=== PATIENT | female | born 1955 | race Caucasian/White ===

== ENCOUNTER 2022-04-04 13:53 | Outpatient (CLI) | payer OTHER, SELFPAY ==
[2022-04-04 19:53] LABS: Lab Add On Test 25.2
== END 2022-04-04 13:54 | disposition home or self-care (01) ==
PROVIDERS: PCP Family Medicine; Visit Provider Family Medicine
DX: Z00.00 Encounter for general adult medical examination without abnormal findings (principal); M85.80 Other specified disorders of bone density and structure, unspecified site; I10 Essential (primary) hypertension; E78.5 Hyperlipidemia, unspecified; E66.9 Obesity, unspecified; Z12.11 Encounter for screening for malignant neoplasm of colon

== ENCOUNTER 2022-05-25 09:45 | Outpatient (CLI) | payer OTHER, SELFPAY ==
--- NOTE | 2022-05-25 10:15 | CRLHL7_ITS ---
For Patients: As a result of the Century Cures Act, medical imaging exams and procedure reports are released immediately into your electronic medical record. You may view this report before your referring provider. If you have questions, please contact your health care provider. BILATERAL SCREENING MAMMOGRAM WITH COMPUTER-AIDED DETECTION AND TOMOSYNTHESIS TECHNIQUE: CC and MLO views were obtained. These mammographic images have been obtained using full-field digital technique. These mammographic images were interpreted with the benefit of computer-aided detection. Breast Tomosynthesis was used in this interpretation. COMPARISON FILM: 09/29/20, 07/28/19, 10/24/17. FINDINGS: There are scattered areas of fibroglandular density IMPRESSION: There is no radiographic evidence for malignancy. ASSESSMENT: BI-RADS Category 1: Negative RECOMMENDATION: Routine screening mammogram in 1 year. A lay language report of this examination will be provided to the patient. Gabe Salazar M.D. Diagnostic Radiologist [email or web address] JACQUELINE/Dictated by: Gabe Salazar MD @ 05/25/2022 11:57:00 AM (Electronically Signed)
== END 2022-05-25 09:46 | disposition home or self-care (01) ==
LOC: MAMMO 09:46
PROVIDERS: PCP Family Medicine; Visit Provider Family Medicine
DX: Z12.31 Encounter for screening mammogram for malignant neoplasm of breast (principal)
CPT/HCPCS: 77063; 77067

== ENCOUNTER 2022-06-22 09:00 | Outpatient (RCR) | payer OTHER, SELFPAY ==
--- NOTE | 2022-04-26 11:40 | PT.OPDNX ---
PT [facility] Daily Note PT [facility] Outpatient Daily Note Start: 04/12/22 13:23 Freq: Status: Active Protocol: Document 04/26/22 09:33 MBB (Rec: 04/26/22 10:31 MBB [id number]) E-Signed By Sita Gold DPT PT OP Daily Progress Note Visit Information Note Type Recert/Progress Note Insurance Information Medical Diagnosis right tibial plateau fracture Treating Diagnosis weakness; impaired gait; decreased knee ROM; pain Subjective Subjective Ankle joint and decreased sensation issues continue to be a big limiting factor. Saw Dr. Morillo and everything is healing correctly. Will return in 2 months. Home Exercise Home Exercise Comments Access Code: [email or web address] Focus exercises from 04/13: heel prop knee ext; seated knee flex overpressure; SLS; Step down/reverse step up; Banded TKE; Mini squat; Self ankle dorsiflexion mobilization Objective Other/Pertinent Objective Right knee 0-130? Patient Instructed in Risks/Benefits Yes Therapeutic Exercise Therapeutic Exercise Minutes (minutes) 30 Therapeutic Exercise: To Restore to restore functional strength Functional Status and ROM -NuStep seat 6, L6, 5 mins; fatigued -Heel raise STMR 1x20 (ankle pain at 90? position) -Sled push 10#, hallway x2 -6 step up, 1UE support, hold SLS while locking knee into TKE with quad and glute activation, 1x15 -LAQ 5# 1x30 -Retro step down 4 1x15, training for roll off foot and avoiding knee valgus -Stagger stance sit to stand, black bench, 1x10, cues to keep heel down -Static lunge at grab bar 1x10 , each way Manual Therapy Techniques Manual Therapy Minutes (minutes) 10 Manual Therapy Techniques to improve ankle and knee joint mobility and ROM -Supine right ankle AP mob grade 3-4 -Heel prop knee ext overpressure -Hooklying knee flexion to end range Treatment Minutes Timed Code Treatment Minutes 40 Total Treatment Time 40 Billing Units Manual Therapy Units 1 Therapeutic Exercise Units 2 Assessment/Impression Assessment/Impression Pt tolerated exercise focused session pushing her strength and endurance. LE mechanics are improving with dynamic functional movements. ROM has been achieved. Continuing to assist with ankle joint impairments. At the point where pt is needed to continue building strength and endurance. Plan of Care Physical Therapy Goals Short term By 03/15/22 patient will... 1) Move knee actively through full ROM 0-130? (MET) 2) Get around house independently with standard walker maintaining NWB. (MET) 3) Demonstrate strong quad set and SLR without lag. (MET) watermaster By 05/10/22 patient will... 1) Walk without AD with normal gait mechanics and no pain. ( nearly met) 2) Ascend/descend steps with step-through mechanics, single railing and no pain. ( progress) 3) Balance on right leg for 10 seconds. (progress) 4) Demonstrate single right leg sit to stand from chair to demonstrate appropriate strength. ( progress) Daily Plan of Care Continue per POC Recertification Information Clinical Certification # #[id number] Patient's H.I.C.N.# # Initial Certification Date 01/27/22 Most Recent Visit 04/26/22 Recertification Start Date 04/22/22 Recertification Due Date 06/19/22 Reasons to Continue Skilled Therapy Patient continues to make progress but is only about 50% of her prior level of function. She continues to have knee and ankle joint pain that limits her activity. Strength and endurance limitations. Fracture is still healing. Working on lower extremity mechanics with functional movements. Rehabilitation Potential excellent Continued Plan of Care and Interventions 1 x per week for 4 weeks then prn for 4 weeks I Certify That I Have Established All Therapy Services/Plan Physician Signature Shows Agreement Dates & Medical Necessity Physician Comment/Change Comment or Changes Physician Signature & Date Please Sign/Date Here Physician NPI Number #
== END 2022-06-22 12:42 | disposition home or self-care (01) ==
PROVIDERS: PCP Family Medicine; Visit Provider Orthopaedic Surgery Sports Medicine
DX: R26.9 Unspecified abnormalities of gait and mobility (principal); Z51.89 Encounter for other specified aftercare
CPT/HCPCS: 97110; 97116; 97140

== ENCOUNTER 2023-04-05 07:40 | Outpatient (CLI) | payer OTHER, SELFPAY | END 2023-04-05 07:41 | disposition home or self-care (01) | PROVIDERS: PCP Family Medicine; Referring Provider Family Medicine; Visit Provider Family Medicine | DX: E78.5 Hyperlipidemia, unspecified (principal); E55.9 Vitamin D deficiency, unspecified; M85.80 Other specified disorders of bone density and structure, unspecified site | CPT/HCPCS: 80053; 80061; 82306 ==

== ENCOUNTER 2023-04-19 14:47 | Outpatient (CLI) | payer OTHER, SELFPAY ==
--- NOTE | 2023-04-19 15:00 | CRLHL7_ITS ---
For Patients: As a result of the Century Cures Act, medical imaging exams and procedure reports are released immediately into your electronic medical record. You may view this report before your referring provider. If you have questions, please contact your health care provider. DXA BONE MINERAL DENSITY STUDY Current height (in): 61.0. Weight (lb): 170.0. Menopause age: 54. Ethnicity: White. 1. Have you had a previous hip or vertebral fracture? No. 2. Have you had any fractures during your adult life which did not result from significant trauma (e.g., auto accident)? No. 3. Did either of your parents have a hip fracture? Yes. 4. Do you smoke? No. 5. Have you ever taken Glucocorticoids? No. 6. Do you have rheumatoid arthritis? No. 7. Do you have secondary osteoporosis? No. 8. Do you drink 3 or more alcoholic drinks per day? No. 9. Are you being treated for osteoporosis? No. 10. Have you ever taken any of the following medications: Actonel, Evista, Fosamax, Miacalcin, Reclast, Boniva, Forteo, HRT (i.e. estrogen/hormone therapy), Protelos, Prolia, Vitamin D, Calcium, other ??? please specify. ANSWER: Yes, Fosamax, vitamin D. 11. Do you have any of the following medical conditions: Anorexia or bulimia, asthma or emphysema, end stage renal disease, hyperparathyroidism, any seizure disorders, cancer, inflammatory bowel diseases, hysterectomy, other ??? please specify. ANSWER: No. 12. What was your maximum height (inches)? 62. 13. Do you perform weight bearing exercise regularly? Yes. 14. Do you regularly consume dairy products? Yes. 15. Do you drink caffeinated beverages? Yes. 16. At what age did your period start? 14. 17. Are you premenopausal? No. 18. How many full term pregnancies have you had? 1. 19. Have you ever missed your period for more than 6 months in a row (not including or menopause)? No. TECHNIQUE: Bone mineral density study was performed using the [employer]. FINDINGS: The results of the study expressed as bone mineral density (BMD) are as follows: Lumbar spine L1 to L4 (L3): BMD: 0.953 g/cm2. T-score: -0.7. Z-score: 1.3. Neck Left: BMD: 0.658 g/cm2. T-score: -1.7. Z-score: 0.0. Right: BMD: 0.603 g/cm2. T-score: -2.2. Z-score: -0.5. Total Left: BMD: 0.897 g/cm2. T-score: -0.4. Z-score: 1.1. Right: BMD: 0.798 g/cm2. T-score: -1.2. Z-score: 0.3. IMPRESSION: Osteopenia. *Comparison exams done prior to 03/2020 were performed on different unit, Source[employer]. COMPARISON: Compared with scan of 07/28/2019, the bone mineral density has decreased by 3.8 percent at the spine and increased by 0.8 percent at the hip. FRAX 10-year Fracture Risk Major Osteoporotic Fracture: 19 percent Hip Fracture: 4.1 percent Reported Risk Factors: [place] () Neck BMD=0.603, BMI=32.1, parental fracture Gabe Salazar M.D. Diagnostic Radiologist [email or web address] ANTONETTE/sylvester / be/Dictated by: Gabe Salazar MD @ 04/19/2023 3:50:00 PM (Electronically Signed)
== END 2023-04-19 14:48 | disposition home or self-care (01) ==
LOC: RAD 14:47
PROVIDERS: PCP Family Medicine; Visit Provider Family Medicine
DX: M85.80 Other specified disorders of bone density and structure, unspecified site (principal)
CPT/HCPCS: 77080

== ENCOUNTER 2023-06-27 09:04 | Outpatient (CLI) | payer OTHER, SELFPAY ==
--- NOTE | 2023-06-27 09:15 | CRLHL7_ITS ---
For Patients: As a result of the Century Cures Act, medical imaging exams and procedure reports are released immediately into your electronic medical record. You may view this report before your referring provider. If you have questions, please contact your health care provider. BILATERAL SCREENING MAMMOGRAM WITH COMPUTER-AIDED DETECTION AND TOMOSYNTHESIS TECHNIQUE: CC and MLO views were obtained. These mammographic images have been obtained using full-field digital technique. These mammographic images were interpreted with the benefit of computer-aided detection. Breast Tomosynthesis was used in this interpretation. COMPARISON FILM: 05/25/22, 09/29/20, 07/28/19. FINDINGS: There are scattered areas of fibroglandular density IMPRESSION: There is no radiographic evidence for malignancy. ASSESSMENT: BI-RADS Category 1: Negative RECOMMENDATION: Routine screening mammogram in 1 year. A lay language report of this examination will be provided to the patient. Gabe Salazar M.D. Diagnostic Radiologist [email or web address] JACQUELINE/Dictated by: Gabe Salazar MD @ 06/27/2023 12:22:00 PM (Electronically Signed)
== END 2023-06-27 09:05 | disposition home or self-care (01) ==
LOC: MAMMO 09:05
PROVIDERS: PCP Family Medicine; Visit Provider Family Medicine
DX: Z12.31 Encounter for screening mammogram for malignant neoplasm of breast (principal)
CPT/HCPCS: 77063; 77067

== ENCOUNTER 2023-11-13 08:29 | Outpatient (CLI) | payer OTHER, SELFPAY ==
--- OUTSIDE RECORDS SUMMARY | 2023-11-13 08:31 | XMS_ITS | Clinical Summary ---
Author Name Unknown Organization [facility] Address [address] [place] [address]. [place] [address] Care Team Providers Care Wine Steward Name Role Phone Unavailable Primary Care Provider Unavailabl e Allergies Active Allergy Reactions Criticality Noted Date Comments Erythromycin Shortness Of Breath,Hives High 10/26/19 11 Nuxjwsmg-Ukjinfsng-Ncetgamrx n Rash Low 03/06/2012 Medications Medication Sig Dispensed Refills Start Date End Date Status Cholecalciferol (VITAMIN D) 2000 UNIT CAPS Take by mouth daily. 0 Active Multiple Vitamin (MULTIVITAMINS PO) Take by mouth daily. 0 Active Misc Natural Products (GLUCOSAMINE CHONDROITIN ADV PO) Take by mouth daily. 0 Active Calcium Carbonate (CALCIUM 600 PO) Take by mouth 2 times daily. 0 Active coenzyme Q-10 (CO Q-10) 200 MG CAPS Take 200 mg by mouth daily. 0 Active aspirin 81 MG tablet Take 1 tablet (81 mg) by mouth daily 30 tablet 1 10/24/2013 Active mometasone (ELOCON) 0.1 % creamIndications:Othe r eczema Apply sparingly to affected area twice daily for 14 days. Do not apply to face. 15 g 1 02/22/2017 Active amLODIPine (NORVASC) 5 MG tabletIndications:HTN , goal below 140/90 TAKE 1 TABLET BY MOUTH EVERY DAY 90 tablet 1 05/21/2018 Active lisinopril (PRINIVIL/ZESTRIL) 40 MG tabletIndications:HTN , goal below 140/90 Take 1 tablet (40 mg) by mouth daily 90 tablet 1 06/04/2018 Active valACYclovir (VALTREX) 1000 mg tabletIndications:Her pes zoster without complication Take 1 tablet (1,000 mg) by mouth 3 times daily 21 tablet 0 06/13/2018 Active triamterene-HCTZ (MAXZIDE-25) 37.5-25 MG tabletIndications:HTN , goal below 140/90 Take 0.5 tablets by mouth daily 90 tablet 0 09/05/2018 Active atorvastatin (LIPITOR) 20 MG tabletIndications:Hyp erlipidemia LDL goal <130 TAKE 1 TABLET (20 MG) BY MOUTH DAILY 90 tablet 1 09/05/2018 Active Active Problems Problem Noted Date Diagnosed Date Family history of stroke 09/05/2018 Chronic pain of right ankle 10/18/2016 Advance Care Planning 03/12/2012 Overview: Advance Care Planning 01/03/2017: Receipt of ACP document: Received: Health Care Directive which was witnessed or notarized on 12/17/2014. Document previously scanned on 10/20/2016. Validation form completed and scanned. Code Status needs to be updated to reflect choices in most recent ACP document. Confirmed/documented designated decision maker(s). Added by Julita Bhagat [facility] Advance Care Planning Liaison Advance Care Planning 03/12/2012: Patient states has Advance Directive and will bring in a copy to clinic. Added by Janelle Stovall HTN, goal below 140/90 03/12/2012 Hyperlipidemia LDL goal <130 03/01/2011 Resolved Problems Problem Noted Date Diagnosed Date Resolved Date Pain in joint, ankle and foot 01/04/2011 06/20/2011 Achilles bursitis or tendinitis 01/04/2011 06/20/2011 Immunizations Name Administration Dates Next Due Influenza (IIV3) PF 08/28/2013, 2,10/26/2010,2004 Influenza Vaccine 18-64 (Flublok) 09/05/2018 Influenza Vaccine >6 months,quad, PF ,10/18/2016,11/05/2015,2014,08/18/2013 TD,PF 7+ (Tenivac) 05/21/2010 TDAP Vaccine (Adacel) 10/18/2016 Zoster recombinant adjuvante d (SHINGRIX) 09/05/2018,04/18/2018 Zoster vaccine, live 11/05/2015 Family History Medical History Relation Comments Cerebrovascular Disease Father Age 80 Hypertension Father Lipids Father Breast Cancer Mother Diagnosed, maste ctomy rgt. breast, March 2015 Osteoporosis Mother Cerebrovascular Disease Paternal Grandfather Coronary Artery Disease Paternal Grandfather Heart Disease Paternal Grandfather stroke Breast Cancer Paternal Grandmother Cerebrovascular Disease Paternal Grandmother Coronary Artery Disease Paternal Grandmother Cancer No family hx of no skin cancer Relation Status Comments Brother 1 Alive Brother 2 Alive Father Maternal Grandfather Maternal Grandmother Mother Alive Paternal Grandfather Paternal Grandmother Sister Alive Son Alive Social History Tobacco Use Types Packs/Day Years Used Date Smoking Tobacco: Never Smokeless Tobacco: Never Alcohol Use Standard Drinks/Week Comments No 0 (1 standard drink = 0.6 oz pur e alcohol) rarely PHQ-2 Answer Date Recorded PHQ-2 Score 0 09/05/2018 Adolescent Education Answer Date Record ed Getting School Help Needed Not on file 07/08 Sex and Gender Information Value Date Recorded Sex Assigned at Female 09/20/2021 12:29 PM SECURITY SYSTEM SALES CONSULTANT Gender Identity Female 09/20/2021 12:29 PM SECURITY SYSTEM SALES CONSULTANT Sexual Orientation Straight 09/20/2021 12 :29 PM SECURITY SYSTEM SALES CONSULTANT Last Filed Vital Signs Vital Sign Reading Time Taken Comments Blood Pressure 148/80 09/05/2018 10:34 AM SECURITY SYSTEM SALES CONSULTANT Pulse 66 09/05/2018 10:34 AM SECURITY SYSTEM SALES CONSULTANT Temperature 36.9 ??C (98.4 ??F) 09/05/2018 10:[address] Respiratory Rate 12 09/05/2018 10:34 AM SECURITY SYSTEM SALES CONSULTANT Oxygen Saturation 98% 10/19/2017 1:08 PM SECURITY SYSTEM SALES CONSULTANT Inhaled Oxygen Concentration - - Weight 83 kg (183 lb) 09/05/2018 10:34 AM SECURITY SYSTEM SALES CONSULTANT Height 156.2 cm (5' 1.5) 10/19/2017 1:08 PM SECURITY SYSTEM SALES CONSULTANT Body Mass Index 34.02 10/19/2017 1:08 PM SECURITY SYSTEM SALES CONSULTANT Plan of Treatment Health Maintenance Due Date Last Done Comments ANNUAL REVIEW OF HM ORDERS 1955 CT COLONOGRAPHY 1955 FLEX SIG 1955 sDNA (Cologuard) 1955 COVID-19 Vaccine (#1) 1955 RSV VACCINE ( & 60+) (1 - 1-dose 60+ series) 2014 COLONOSCOPY 08/08/2015 08/08/2005 COLORECTAL CANCER SCREENING 10/28/2018 FIT 10/28/2018 10/28/2017, 10/08, 11/05/2015 FALL RISK ASSESSMENT 2019 MEDICARE ANNUAL WELLNESS VISIT 2019 10/19/2017, 10/18/2016, 05/19/2015, Additional history exists Pneumococcal Vaccine: 65+ Years (1 of 1 - PCV) 2019 MAMMO SCREENING 10/24/2019 10/24/2017, 05/08, 04/01/2013, Additional history exists DEXA 11/23/2020 11/23/2005, 11/23/2005 GLUCOSE 04/18/2021 04/18/2018, 10/08, 10/18/2016, Additional history exists ADVANCE CARE PLANNING 01/03/2022 01/03/2017, 012 LIPID 04/18/2023 04/18/2018, 10/08, 10/18/2016, Additional history exists INFLUENZA VACCINE (#1) 2023 8, 08/06/2017, 10/18/2016, Additional history exists PHQ-2 (once per calendar year) 2023 09/05/2018, 09/05/2018, 04/18/2018, Additional history exists DTAP/TDAP/TD IMMUNIZATION (2 - Td or Tdap) 10/18/2026 10/18/2016, 05/21/2010 HEPATITIS C SCREENING Completed 05/14/2013 ZOSTER IMMUNIZATION Completed 09/05/2018, 04/18/2018, 11/05/2015 HPV IMMUNIZATION Aged Out No longer e ligible based on patient's age to complete this topic IPV IMMUNIZATION Aged Out No longer e ligible based on patient's age to complete this topic MENINGITIS IMMUNIZATION Aged Out No l onger eligible based on patient's age to complete this topic RSV MONOCLONAL ANTIBODY Aged Out No l onger eligible based on patient's age to complete this topic Advance Directives For more information, please contact: [phone] Documents on File Type Date Recorded Patient Aoc Operations Intelligence Chief Expl anation Advance Directives and Living Will 10/20/2016 9:49 AM Health Care Directiv e 12/17/14 Healthcare Agents on File Name Relationship Healthcare Agent Relationship Communication Magdi Farfan Spouse Health Care Agent [email or web address] Josh Adolph Son First Alternate Health Care Agent
--- OUTSIDE RECORDS SUMMARY | 2023-11-13 08:32 | XMS_ITS | Encounter Summary ---
Author Name Unknown Organization [facility] Address [facility] [place] [address] Care Team Providers Care Watch Electrician Name Role Phone Tacos Galindo PA-C Primary Care Provider Tacos Galindo PA-C Unavailable + [phone] Tacos Galindo PA-C Unavailable + [phone] Encounter Details Date Type Department Care Team (Late st Contact Info) Description 10/25/2017 [facility] Medical Advice [address], [address] [place] [address] Tacos Galindo PA-C [address] [place] [address] Social History Tobacco Use Types Packs/Day Years Used Date Smoking Tobacco: Never Smokeless Tobacco: Never Alcohol Use Standard Drinks/Week Comments No 0 (1 standard drink = 0.6 oz pur e alcohol) rarely Sex and Gender Information Value Date Recorded Sex Assigned at Female 09/20/2021 12:29 PM PHARMACY GRAD INTERN Gender Identity Female 09/20/2021 12:29 PM PHARMACY GRAD INTERN Sexual Orientation Straight 09/20/2021 12 :29 PM PHARMACY GRAD INTERN documented as of this encounter Plan of Treatment Not on file documented as of this encounter Visit Diagnoses Not on filedocumented in this encounter Additional Health Concerns Assessment Noted Time PHQ-9 Depression Total Score: 3 08/06/20 17 10:09 AM CDT documented as of this encounter Care Teams Watch Electrician Relationship Specialty Start Date End Date Tacos Galindo PA-C PCP - General Physician Care Specialist - Medical 10/19/17 05/29/19 Tacos Galindo PA-C [address] [address] [place] [address] PCP - Assigned PCP 10/21/17 12/10/18 Tacos Galindo PA-C [address] [address] [place] [id number] Assigned PCP 10/21/17 09/10/21 documented as of this encounter
--- OUTSIDE RECORDS SUMMARY | 2023-11-13 08:32 | XMS_ITS | Encounter Summary ---
Author Name Unknown Organization [facility] Address [address] [place] [address]. [place] [address] Care Team Providers Care Camera Machinist Name Role Phone Reshma Gordon APRN MANAGER BATTERY Primary Care Provider + Tacos Galindo PA-C Primary Care Provider Tacos Galindo PA-C Unavailable + Tacos Galindo PA-C Unavailable [phone] Reason for Visit * Reason Onset Date Comments Refill Request 06/17/2014 Encounter Details Date Type Department Care Team (Late st Contact Info) Description 06/17/2014 Evan Berg [address] [phone] Reshma Gordon APRN [address] [address] Refill Request Social History Tobacco Use Types Packs/Day Years Used Date Smoking Tobacco: Never Smokeless Tobacco: Never Alcohol Use Standard Drinks/Week Comments No 0 (1 standard drink = 0.6 oz pur e alcohol) rarely Sex and Gender Information Value Date Recorded Sex Assigned at Female 09/20/2021 12:29 PM CANE BURNER Gender Identity Female 09/20/2021 12:29 PM CANE BURNER Sexual Orientation Straight 09/20/2021 12 :29 PM CANE BURNER documented as of this encounter Miscellaneous Notes * Telephone Encounter - Magnolia Noyola RN - 06/17/2014 9:05 AM CDT We gave her a year supply in April. I called in a verbal to the pharmacy, they were just using santo old rx number. It is now ready for her to pick up attendant, pt notified as below. Omid Cabrera Nurse * Telephone Encounter - Magnolia Noyola RN - 06/17/2014 9:04 AM CDTMessage [facility] Original authorizing provider: Reshma Gordon NP, ROTATING EQUIPMENT SPECIALIST Nadia Appiah would like a refill of the following medications: simvastatin (ZOCOR) 40 MG tablet [Reshma Gordon NP, ROTATING EQUIPMENT SPECIALIST] Preferred pharmacy: [id number] Comment: Good morning - I see that Jenna issued a prescription for the Simvastatin on April 29, which should have been good for another year, however my pharmacy only has a record of an earlier order that doesn't allow any more refills. Please renew the Simvastatin 40 mg prescription, to be dispensed in quantities of 90 tablets at a time. Thank you! documented in this encounter Plan of Treatment Not on file documented as of this encounter Visit Diagnoses Diagnosis Hyperlipidemia LDL goal <130 Other and unspecified hyperlipidemia documented in this encounter Care Teams Camera Machinist Relationship Specialty Start Date End Date Reshma Gordon, PEÑA DOMINIQUE [address] [facility] [address] [place] [address] PCP - General Nurse Practitioner - Family 08/18/13 10/18/17 Tacos Galindo PA-C [address] [place] [address] PCP - General Physician Regional Production Manager - Medical 10/19/17 05/29/19 Tacos Galindo PA-C [address] [address] [place] [id number] PCP - Assigned PCP 10/21/17 12/10/18 Tacos Galindo PA-C [address] [address] [place] [id number] Assigned PCP 10/21/17 09/10/21 documented as of this encounter
--- OUTSIDE RECORDS SUMMARY | 2023-11-13 08:32 | XMS_ITS | Encounter Summary ---
Author Name Unknown Organization [facility] Address [address] [place] [address]. [place] [address] Care Team Providers Care Production Corrugator Name Role Phone Reshma Gordon APRN FLOW MACHINE OPERATOR Primary Care Provider + Tacos Galindo PA-C Primary Care Provider Tacos Galindo PA-C Unavailable + Tacos Galindo PA-C Unavailable [phone] Reason for Visit * Reason Onset Date Comments Medication Follow-up 05/28/2015 Do a med re c Encounter Details Date Type Department Care Team (Late st Contact Info) Description 05/28/2015 [facility] Medical Advice [place] [address] [phone] Reshma Gordon APRN [address] [address] Medication Follow-up (Do a med rec) Social History Tobacco Use Types Packs/Day Years Used Date Smoking Tobacco: Never Smokeless Tobacco: Never Alcohol Use Standard Drinks/Week Comments No 0 (1 standard drink = 0.6 oz pur e alcohol) rarely Sex and Gender Information Value Date Recorded Sex Assigned at Female 09/20/2021 12:29 PM SAP SOLUTIONS ARCHITECT Gender Identity Female 09/20/2021 12:29 PM SAP SOLUTIONS ARCHITECT Sexual Orientation Straight 09/20/2021 12 :29 PM SAP SOLUTIONS ARCHITECT documented as of this encounter Miscellaneous Notes * Telephone Encounter - Magnolia Noyola, RN - 05/31/2015 8:54 AM CDT I messaged pt as below. I re-added the Triamcinolone and discontinued the Desonide per her request.No further action needed at this time. Rick Triage Nurse documented in this encounter Plan of Treatment Not on file documented as of this encounter Visit Diagnoses Diagnosis Eczema- Primary Contact dermatitis and other eczema, due to unspecified cause documented in this encounter Care Teams Production Corrugator Relationship Specialty Start Date End Date Reshma Gordon APRN FLOW MACHINE OPERATOR [address] [place] [address] PCP - General Nurse Practitioner - Family 08/18/13 10/18/17 Tacos Galindo PA-C [address] [place] [address] PCP - General Physician Staff Rn - Medical 10/19/17 05/29/19 Tacos Galindo PA-C [address] [place] [address] PCP - Assigned PCP 10/21/17 12/10/18 Tacos Galindo PA-C [address] [place] [address] Assigned PCP 10/21/17 09/10/21 documented as of this encounter
--- OUTSIDE RECORDS SUMMARY | 2023-11-13 08:32 | XMS_ITS | Encounter Summary ---
Author Name Unknown Organization [place] Address [address] [place] [address]. [place] [address] Care Team Providers Care Ream Cutter Name Role Phone Reshma Gordon APRN MEDICAL ASSISTANT CARDIOLOGY Primary Care Provider + Tacos Galindo PA-C Primary Care Provider Tacos Galindo PA-C Unavailable +[phone] Tacos Galindo PA-C Unavailable +[phone] Reason for Visit * Reason Onset Date Comments Appointment 05/17/2015 Fasting labs Encounter Details Date Type Department Care Team (Late st Contact Info) Description 05/17/2015 MyC Medical Advice [address] [phone] Reshma Gordon APRN [address] [address] Appointment (Fasting labs) Social History Tobacco Use Types Packs/Day Years Used Date Smoking Tobacco: Never Smokeless Tobacco: Never Alcohol Use Standard Drinks/Week Comments No 0 (1 standard drink = 0.6 oz pur e alcohol) rarely Sex and Gender Information Value Date Recorded Sex Assigned at Female 09/20/2021 12:29 PM EXTRUDER OPERATOR VERTICAL Gender Identity Female 09/20/2021 12:29 PM EXTRUDER OPERATOR VERTICAL Sexual Orientation Straight 09/20/2021 12 :29 PM EXTRUDER OPERATOR VERTICAL documented as of this encounter Miscellaneous Notes * Telephone Encounter - Magnolia Noyola RN - 05/17/2015 4:01 PM CDT I messaged pt as below. Rick Triage Nurse documented in this encounter Plan of Treatment Not on file documented as of this encounter Visit Diagnoses Not on filedocumented in this encounter Care Teams Ream Cutter Relationship Specialty Start Date End Date Reshma Gordon, BOILER HELPER MEDICAL ASSISTANT CARDIOLOGY [address] [place] [address] PCP - General Nurse Practitioner - Family 08/18/13 10/18/17 Tacos Galindo PA-C [address] [place] [address] PCP - General Physician Fire Extinguisher Installer - Medical 10/19/17 05/29/19 Tacos Galindo PA-C [address] [place] [address] PCP - Assigned PCP 10/21/17 12/10/18 Tacos Galindo PA-C [address] [place] [address] Assigned PCP 10/21/17 09/10/21 documented as of this encounter
--- OUTSIDE RECORDS SUMMARY | 2023-11-13 08:32 | XMS_ITS | Encounter Summary ---
Author Name Unknown Organization [place] Address [address] [place] [address]. [place] [address] Care Team Providers Care Center Machine Set Up Operator Name Role Phone Reshma Gordon APRN LUMBER PLANER Primary Care Provider + Tacos Galindo PA-C Primary Care Provider Tacos Galindo PA-C Unavailable + Tacos Galindo PA-C Unavailable +[phone] Reason for Visit * Reason Onset Date Comments Refill Request 08/29/2013 Encounter Details Date Type Department Care Team (Late st Contact Info) Description 08/29/2013 MyC Migdalia Berg [address] [phone] Reshma Gordon APRN [address] [address] Refill Request Social History Tobacco Use Types Packs/Day Years Used Date Smoking Tobacco: Never Smokeless Tobacco: Never Alcohol Use Standard Drinks/Week Comments No 0 (1 standard drink = 0.6 oz pur e alcohol) rarely Sex and Gender Information Value Date Recorded Sex Assigned at Female 09/20/2021 12:29 PM MAIL ORDER SORTER Gender Identity Female 09/20/2021 12:29 PM MAIL ORDER SORTER Sexual Orientation Straight 09/20/2021 12 :29 PM MAIL ORDER SORTER documented as of this encounter Miscellaneous Notes * Telephone Encounter - Maura Stafford - 09/01/2013 12:19 PM CST Pharmacy was called- they said they didn't have the refills on file. I have resent the RX for #90x2. Maura Stafford RN ORDER SORTER * Telephone Encounter - Maura Stafford - 09/01/2013 12:16 PM CSTMessage from MyChart: From: NADIA APPIAH Sent: SunSep 01, 2013 10:22 AM To: Rd Triage Pod A Subject: RE: Medication Renewal Request - URGENT Hi again I went to picking tech my RX at [facility] on Sunday - they had filled the wrong prescription (Enalapril instead of AmLODIPine)! They said that they had not received Dr authorization to refill the Amlodipine and I had no more refills available, so they were only able to give me 3 more tabs. Something got mixed up somewhere. Please request a refill of the AmLODIPine 2.5 mg at the [facility], [address] [place] [address] as soon aspossible. I am leaving town for 2 weeks and will run out of my medication before I return, if this isn't refilled. When I saw Jenna (Reshma) in May, I thought that she had authorized refills for all my prescriptions to run through the next year, but apparently not. Thanks! Nadia Appiah ----- Message ----- From: Maura Berg Sent: 08/29/2013 11:35 AM MAIL ORDER SORTER To: Nadia Appiah Subject: RE: Medication Renewal Request Your medication has been sent to the pharmacy. Maura Stafford RN ----- Message ----- From: NADIA APPIAH Sent: 08/29/2013 9:40 AM MAIL ORDER SORTER To: Reshma Gordon NP, OSD CLERK Subject: Medication Renewal Request Original authorizing provider: Reshma Gordon NP, OSD CLERK Nadia Appiah would like a refill of the following medications: amLODIPine (NORVASC) 2.5 MG tablet [Reshma Gordon NP, OSD CLERK] Preferred pharmacy: [id number] - [place], [place] - [address] [facility] Comment: Hi [facility] says that there are no refills available on my prescription for Amlodipine, although I'm pretty sure that Jenna renewed the prescription during my May visit. Could someone please call [facility] pharmacy to make sure that this prescription can be refilled this weekend?I only have a few tablets left. Thanks! ORDER SORTER documented in this encounter Plan of Treatment Not on file documented as of this encounter Visit Diagnoses Diagnosis HTN, goal below 140/90- Primary Unspecified essential hypertension documented in this encounter Care Teams Center Machine Set Up Operator Relationship Specialty Start Date End Date Reshma Gordon APRN LUMBER PLANER [address] [place], [place] [address] PCP - General Nurse Practitioner - Family 08/18/13 10/18/17 Tacos Galindo PA-C [address] [place] [address] PCP - General Physician Trade Specialist - Medical 10/19/17 05/29/19 Tacos Galindo PA-C [address] [place] [address] PCP - Assigned PCP 10/21/17 12/10/18 Tacos Galindo PA-C [address] [place] [address] Assigned PCP 10/21/17 09/10/21 documented as of this encounter
--- OUTSIDE RECORDS SUMMARY | 2023-11-13 08:32 | XMS_ITS | Encounter Summary ---
Author Name Unknown Organization [place] Address [address] [place] [address]. [place] [address] Care Team Providers Care Senior Pastor Name Role Phone Tona Williamson PA-C Primary Care Provi domingo Reshma Gordon APRN SAP PP CONSULTANT Primary Care Provider + Tacos Galindo PA-C Primary Care Provider Tacos Galindo PA-C Unavailable + Tacos Galindo PA-C Unavailable + Reason for Visit * Reason Onset Date Comments Refill Request 06/02/2012 Encounter Details Date Type Department Care Team (Late st Contact Info) Description 06/02/2012 MyC Migdalia [address] [phone] Tona Williamson PA-C [place] [address] Refill Request Social History Tobacco Use Types Packs/Day Years Used Date Smoking Tobacco: Never Smokeless Tobacco: Never Alcohol Use Standard Drinks/Week Comments No 0 (1 standard drink = 0.6 oz pur e alcohol) rarely Sex and Gender Information Value Date Recorded Sex Assigned at Female 09/20/2021 12:29 PM EDITORIAL WRITER Gender Identity Female 09/20/2021 12:29 PM EDITORIAL WRITER Sexual Orientation Straight 09/20/2021 12 :29 PM EDITORIAL WRITER documented as of this encounter Miscellaneous Notes * Telephone Encounter - Delmi Graydontrell Berg - 06/03/2012 10:25 AM CDTMessage from MyChart: Original authorizing provider: KELLY Oliveros would like a refill of the following medications: triamterene-hydrochlorothiazide (MAXZIDE-25) 37.5-25 MG per tablet [Tona Williamson PA-C] Preferred pharmacy: [facility] Comment: documented in this encounter Plan of Treatment Not on file documented as of this encounter Visit Diagnoses Diagnosis HTN (hypertension) Unspecified essential hypertension documented in this encounter Care Teams Senior Pastor Relationship Specialty Start Date End Date Tona Williamson PA-C PCP - General Physician Photographs Curator 10/25/10 08/17/13 Reshma Gordon APRN CNP [address] [place] [address] PCP - General Nurse Practitioner - Family 08/18/13 10/18/17 Tacos Galindo PA-C [address] [place] [address] PCP - General Physician Photographs Curator - Medical 10/19/17 05/29/19 Tacos Galindo PA-C [address] [place], [place] [id number] PCP - Assigned PCP 10/21/17 12/10/18 Tacos Galindo PA-C [address] [place], [place] [id number] Assigned PCP 10/21/17 09/10/21 documented as of this encounter
--- OUTSIDE RECORDS SUMMARY | 2023-11-13 08:32 | XMS_ITS | Encounter Summary ---
Author Name Unknown Organization [place] Address [facility] [place] [address] Care Team Providers Care Personal Care Worker Name Role Phone Tacos Galindo PA-C Primary Care Provider Tacos Galindo PA-C Unavailable + [phone] Tacos Galindo PA-C Unavailable + [phone] Encounter Details Date Type Department Care Team (Late st Contact Info) Description 12/19/2017 [facility] Medical Advice [address], [address] [place] [address] Tacos Galindo PA-C [address] [place] [address] Hyperlipidemia LDL goal <130 Social History Tobacco Use Types Packs/Day Years Used Date Smoking Tobacco: Never Smokeless Tobacco: Never Alcohol Use Standard Drinks/Week Comments No 0 (1 standard drink = 0.6 oz pur e alcohol) rarely Sex and Gender Information Value Date Recorded Sex Assigned at Female 09/20/2021 12:29 PM CLINICAL LAB CLERK Gender Identity Female 09/20/2021 12:29 PM CLINICAL LAB CLERK Sexual Orientation Straight 09/20/2021 12 :29 PM CLINICAL LAB CLERK documented as of this encounter Miscellaneous Notes * Telephone Encounter - Janette Saavedra RN - 12/19/2017 4:17 PM CDT Replied to the Pt. See below. Sent in 90 day supply. Janette Saavedra, GAB[facility] -- [facility] documented in this encounter Plan of Treatment Not on file documented as of this encounter Visit Diagnoses Diagnosis Hyperlipidemia LDL goal <130 Other and unspecified hyperlipidemia documented in this encounter Additional Health Concerns Assessment Noted Time PHQ-9 Depression Total Score: 3 08/06/20 17 10:09 AM CDT documented as of this encounter Care Teams Personal Care Worker Relationship Specialty Start Date End Date Tacos Galindo PA-C PCP - General Physician Metal Bonding Helper - Medical 10/19/17 05/29/19 Tacos Galindo PA-C [address] [place] [address] PCP - Assigned PCP 10/21/17 12/10/18 Tacos Galindo PA-C [address] [place] [id number] Assigned PCP 10/21/17 09/10/21 documented as of this encounter
--- OUTSIDE RECORDS SUMMARY | 2023-11-13 08:32 | XMS_ITS | Encounter Summary ---
Author Name Unknown Organization [place] Address [address] [place] [address]. [place] [address] Care Team Providers Care Vine Fruit Farming Supervisor Name Role Phone Reshma Gordon DISTILLERY MILLER DELIVERY LEAD Primary Care Provider + Tacos Galindo PA-C Primary Care Provider Tacos Galindo PA-C Unavailable [phone] Tacos Galindo PA-C Unavailable + [phone] Reason for Visit * Reason Onset Date Comments MyChart Communication 10/15/2016 Imm/Inj 10/15/2016 Influenza Encounter Details Date Type Department Care Team (Late st Contact Info) Description 10/15/2016 [facility] Radha Berg [address] [phone] Reshma Gordon, PEÑA [address] [address] MyChart Communication; Imm/Inj (Influenza) Social History Tobacco Use Types Packs/Day Years Used Date Smoking Tobacco: Never Smokeless Tobacco: Never Alcohol Use Standard Drinks/Week Comments No 0 (1 standard drink = 0.6 oz pur e alcohol) rarely Sex and Gender Information Value Date Recorded Sex Assigned at Female 09/20/2021 12:29 PM SUPERINTENDENT CONSTRUCTION Gender Identity Female 09/20/2021 12:29 PM SUPERINTENDENT CONSTRUCTION Sexual Orientation Straight 09/20/2021 12 :29 PM SUPERINTENDENT CONSTRUCTION documented as of this encounter Miscellaneous Notes * Telephone Encounter - Jay Mayer RN - 10/16/2016 7:57 AM CST Sent patient mychart message as per below Made immunization request note in appointment Jay Mayer RN RINTENDENT CONSTRUCTION documented in this encounter Plan of Treatment Not on file documented as of this encounter Visit Diagnoses Not on filedocumented in this encounter Care Teams Vine Fruit Farming Supervisor Relationship Specialty Start Date End Date Reshma Gordon, DISTILLERY MILLER DELIVERY LEAD [address] [place], [place] [address] PCP - General Nurse Practitioner - Family 08/18/13 10/18/17 Tacos Galindo PA-C [address] [place] [address] PCP - General Physician White Sugar Supervisor - Medical 10/19/17 05/29/19 Tacos Galindo PA-C [address] [place] [address] PCP - Assigned PCP 10/21/17 12/10/18 Tacos Galindo PA-C [address] [place] [address] Assigned PCP 10/21/17 09/10/21 documented as of this encounter
--- OUTSIDE RECORDS SUMMARY | 2023-11-13 08:32 | XMS_ITS | Referral Summary ---
Author Name Unknown Organization [place] Address [address] [place] [address]. [place] [address] Care Team Providers Care Sports Commentator Name Role Phone Unavailable Primary Care Provider Unavailabl e Allergies Active Allergy Reactions Criticality Noted Date Comments Erythromycin Shortness Of Breath,Hives High 10/26/19 11 Amlujfqc-Wdspmxupp-Vsoqysxqc n Rash Low 03/06/2012 Medications Medication Sig [...] designated decision maker(s). Added by Julita Bhagat [facility] Advance Care Planning Liaison [...] d (SHINGRIX) 09/05/2018,04/18/2018 Zoster vaccine, live 11/05/2015 Social History Tobacco Use Types Packs/Day Years [...] Sex Assigned at Female 09/20/2021 12:29 PM SENIOR NET ARCHITECT Gender Identity Female 09/20/2021 12:29 PM SENIOR NET ARCHITECT Sexual Orientation Straight 09/20/2021 12 :29 PM SENIOR NET ARCHITECT Last Filed Vital Signs Vital Sign Reading Time Taken Comments Blood Pressure 148/80 09/05/2018 10:34 AM SENIOR NET ARCHITECT Pulse 66 09/05/2018 10:34 AM SENIOR NET ARCHITECT Temperature 36.9 ??C (98.4 ??F) 09/05/2018 10:[address] Respiratory Rate 12 09/05/2018 10:34 AM SENIOR NET ARCHITECT Oxygen Saturation 98% 10/19/2017 1:08 PM SENIOR NET ARCHITECT Inhaled Oxygen Concentration - - Weight 83 kg (183 lb) 09/05/2018 10:34 AM SENIOR NET ARCHITECT Height 156.2 cm (5' 1.5) 10/19/2017 1:08 PM SENIOR NET ARCHITECT Body Mass Index 34.02 10/19/2017 1:08 PM SENIOR NET ARCHITECT Plan of Treatment Not on file Advance Directives For more information, please contact: [phone] Documents on File Type Date Recorded Patient Emergency Planning And Response Manager Expl anation Advance Directives and Living Will 10/20/2016 9:49 AM Health Care Directiv e 12/17/14 Healthcare Agents on File Name Relationship Healthcare Agent Relationship Communication Magdi Farfan Spouse Health Care Agent [email or web address] Josh Farfan Son First Alternate Health Care Agent
--- OUTSIDE RECORDS SUMMARY | 2023-11-13 08:32 | XMS_ITS | Encounter Summary ---
Author Name Unknown Organization [place] Address [address] [place] [address]. [place] [address] Care Team Providers Care Civil Designer Name Role Phone Tona Williamson PA-C Primary Care Provi domingo Reshma Gordon APRN WORD PROCESSING SUPERVISOR Primary Care Provider + Tacos Galindo PA-C Primary Care Provider Tacos Galindo PA-C Unavailable + Tacos Galindo PA-C Unavailable + Reason for Visit * Reason Onset Date Comments Refill Request 01/08/2012 Encounter Details Date Type Department Care Team (Late st Contact Info) Description 01/08/2012 MyC Migdalia [address] [phone] Tona Williamson PA-C [place] [address] Refill Request Social History Tobacco Use Types Packs/Day Years Used Date Smoking Tobacco: Never Smokeless Tobacco: Never Alcohol Use Standard Drinks/Week Comments No 0 (1 standard drink = 0.6 oz pur e alcohol) rarely Sex and Gender Information Value Date Recorded Sex Assigned at Female 09/20/2021 12:29 PM TEAMCENTER SOLUTION ARCHITECT Gender Identity Female 09/20/2021 12:29 PM TEAMCENTER SOLUTION ARCHITECT Sexual Orientation Straight 09/20/2021 12 :29 PM TEAMCENTER SOLUTION ARCHITECT documented as of this encounter Miscellaneous Notes * Telephone Encounter - Asia Gray - 01/08/2012 10:25 AM CDTMessage from MyChart: Original authorizing provider: KELLY Oliveros would like a refill of the following medications: ALENdronate (FOSAMAX) 70 MG tablet [Tona Williamson PA-C] Preferred pharmacy: [facility] Comment: documented in this encounter Plan of Treatment Not on file documented as of this encounter Visit Diagnoses Diagnosis Unspecified vitamin D deficiency- Primary documented in this encounter Care Teams Civil Designer Relationship Specialty Start Date End Date Tona Williamson PA-C PCP - General Physician Dip Guider Stoves 10/25/10 08/17/13 Reshma Gordon APRN CNP [address] [place] [address] PCP - General Nurse Practitioner - Family 08/18/13 10/18/17 Tacos Galindo PA-C [address] [place] [address] PCP - General Physician Dip Guider Stoves - Medical 10/19/17 05/29/19 Tacos Galindo PA-C [address] [place] [address] PCP - Assigned PCP 10/21/17 12/10/18 Tacos Galindo PA-C [address] [place] [address] Assigned PCP 10/21/17 09/10/21 documented as of this encounter
--- OUTSIDE RECORDS SUMMARY | 2023-11-13 08:32 | XMS_ITS | Encounter Summary ---
Author Name Unknown Organization [place] Address [address] [place] [address]. [place] [address] Care Team Providers Care Hospitalist Nocturnist Physician Name Role Phone Tona Williamson PA-C Primary Care Provi domingo Reshma Gordon APRN VIRTUAL ASSISTANT Primary Care Provider + Tacos Galindo PA-C Primary Care Provider Tacos Galindo PA-C Unavailable + Tacos Galindo PA-C Unavailable +[phone] Reason for Visit * Reason Onset Date Comments Refill Request 12/12/2012 Encounter Details Date Type Department Care Team (Late st Contact Info) Description 12/12/2012 MyC Migd[place] [address] [phone] Tona Williamson PA-C [place] [address] Refill Request Social History Tobacco Use Types Packs/Day Years Used Date Smoking Tobacco: Never Smokeless Tobacco: Never Alcohol Use Standard Drinks/Week Comments No 0 (1 standard drink = 0.6 oz pur e alcohol) rarely Sex and Gender Information Value Date Recorded Sex Assigned at Female 09/20/2021 12:29 PM CREATIVE SERVICES DESIGNER Gender Identity Female 09/20/2021 12:29 PM CREATIVE SERVICES DESIGNER Sexual Orientation Straight 09/20/2021 12 :29 PM CREATIVE SERVICES DESIGNER documented as of this encounter Plan of Treatment Not on file documented as of this encounter Visit Diagnoses Diagnosis Hypercholesterolemia- Primary Pure hypercholesterolemia documented in this encounter Care Teams Hospitalist Nocturnist Physician Relationship Specialty Start Date End Date Tona Williamson PA-C PCP - General Physician Gasket Notcher 10/25/10 08/17/13 Reshma Gordon APRN VIRTUAL ASSISTANT [address] [place] [address] PCP - General Nurse Practitioner - Family 08/18/13 10/18/17 Tacos Galindo PA-C [address] [place] [address] PCP - General Physician Gasket Notcher - Medical 10/19/17 05/29/19 Tacos Galindo PA-C [address] [place] [address] PCP - Assigned PCP 10/21/17 12/10/18 Tacos Galindo PA-C [address] [place], [place] [id number] Assigned PCP 10/21/17 09/10/21 documented as of this encounter
--- OUTSIDE RECORDS SUMMARY | 2023-11-13 08:32 | XMS_ITS | Encounter Summary ---
Author Name Unknown Organization [place] Address [facility] [place] [address] Care Team Providers Care Financial Management Consultant Name Role Phone Tacos Galindo PA-C Unavailable [phone] Reason for Visit * Reason Onset Date Comments Panel Management 09/02/2019 Encounter Details Date Type Department Care Team (Late st Contact Info) Description 09/02/2019 [facility] Medical Advice [address], [address] [place] [address] Tacos Galindo PA-C [address] [place] [address] Panel Management Social History Tobacco Use Types Packs/Day Years Used Date Smoking Tobacco: Never Smokeless Tobacco: Never Alcohol Use Standard Drinks/Week Comments No 0 (1 standard drink = 0.6 oz pur e alcohol) rarely PHQ-2 Answer Date Recorded PHQ-2 Score 0 09/05/2018 Sex and Gender Information Value Date Recorded Sex Assigned at Female 09/20/2021 12:29 PM AUTO PARKER Gender Identity Female 09/20/2021 12:29 PM AUTO PARKER Sexual Orientation Straight 09/20/2021 12 :29 PM AUTO PARKER documented as of this encounter Miscellaneous Notes * Telephone Encounter - Yara Burleson CMA - 09/09/2019 1:39 PM CST Patient [facility] to [facility]. Yara Burleson MA PARKER * Telephone Encounter - Yara Burleson CMA - 09/02/2019 8:49 AM CST Panel Management Review Patient has the following on her problem list: Hypertension Last three blood pressure readings: BP Readings from Last 3 Encounters: 09/05/18 148/80 05/08/18 136/80 05/02/18 (P) 132/90 Blood pressure: FAILED HTN Guidelines: Less than 140/90 Composite cancer screening Chart review shows that this patient is due/due soon for the following Fecal Colorectal (FIT) Summary: Patient is due/failing the following: SHERIE, FIT, LDL, PHQ9 and PHYSICAL Action needed: Patient needs office visit for Medicare Annual wellness visit SHERIE-7, Patient needs to do PHQ9. and Patient needs referral/order: FIT Type of outreach: Sent Talking Data message. Questions for provider review: None Yara Burleson MA Chart routed to Care Team . PARKER documented in this encounter Plan of Treatment Not on file documented as of this encounter Visit Diagnoses Not on filedocumented in this encounter Additional Health Concerns Assessment Noted Time PHQ-9 Depression Total Score: 3 09/05/20 18 12:23 PM AUTO PARKER documented as of this encounter Care Teams Financial Management Consultant Relationship Specialty Start Date End Date Tacos Galindo PA-C [address] [place] [address] Assigned PCP 10/21/17 09/10/21 documented as of this encounter
--- OUTSIDE RECORDS SUMMARY | 2023-11-13 08:32 | XMS_ITS | Encounter Summary ---
Author Name Unknown Organization [place] Address [facility] [place] [address] Care Team Providers Care Ware Carrier Name Role Phone Tacos Galindo PA-C Primary Care Provider Tacos Galindo PA-C Unavailable + [phone] Tacos Galindo PA-C Unavailable + [phone] Reason for Visit * Reason Onset Date Comments Shingles 06/13/2018 E-visit submitte d Encounter Details Date Type Department Care Team (Late st Contact Info) Description 06/13/2018 MyC Medical Advice [address], [address] [place] [address] Tacos Galindo PA-C [address] [place] [address] Iram (E-visit submitted) Social History Tobacco Use Types Packs/Day Years Used Date Smoking Tobacco: Never Smokeless Tobacco: Never Alcohol Use Standard Drinks/Week Comments No 0 (1 standard drink = 0.6 oz pur e alcohol) rarely Sex and Gender Information Value Date Recorded Sex Assigned at Female 09/20/2021 12:29 PM STABILIZER OPERATOR Gender Identity Female 09/20/2021 12:29 PM STABILIZER OPERATOR Sexual Orientation Straight 09/20/2021 12 :29 PM STABILIZER OPERATOR documented as of this encounter Miscellaneous Notes * Telephone Encounter - Sommer López RN - 06/14/2018 9:07 AM CDT She couldn't attach the picture in the e-visit so she sent this message so you could see it. Sommer López, RN * Telephone Encounter - Tacos Galindo PA-C - 06/13/2018 4:41 PM CDT Now I'm confused..... I did her e-visit. Is this before or after? Tacos documented in this encounter Plan of Treatment Not on file documented as of this encounter Visit Diagnoses Not on filedocumented in this encounter Additional Health Concerns Assessment Noted Time PHQ-9 Depression Total Score: 3 08/06/20 17 10:09 AM CDT documented as of this encounter Care Teams Ware Carrier Relationship Specialty Start Date End Date Tacos Galindo PA-C PCP - General Physician Greens Laborer - Medical 10/19/17 05/29/19 Tacos Galindo PA-C [address] [place] [address] PCP - Assigned PCP 10/21/17 12/10/18 Tacos Galindo PA-C [address] [place] [address] Assigned PCP 10/21/17 09/10/21 documented as of this encounter
--- OUTSIDE RECORDS SUMMARY | 2023-11-13 08:32 | XMS_ITS | Encounter Summary ---
Author Name Unknown Organization [place] Address [facility] [place] [address] Care Team Providers Care Wreath And Garland Maker Name Role Phone Tacos Galindo PA-C Primary Care Provider Tacos Galindo PA-C Unavailable + [phone] Tacos Galindo PA-C Unavailable + [phone] Reason for Visit * Reason Onset Date Comments Medication Question 06/01/2018 Lisinopril a nd Amlodipine dosing Encounter Details Date Type Department Care Team (Late st Contact Info) Description 06/01/2018 [facility] Medical Advice [address], [address] [place] [address] Tacos Galindo PA-C [address] [place] [address] Medication Question (Lisinopril and Amlodi... Social History Tobacco Use Types Packs/Day Years Used Date Smoking Tobacco: Never Smokeless Tobacco: Never Alcohol Use Standard Drinks/Week Comments No 0 (1 standard drink = 0.6 oz pur e alcohol) rarely Sex and Gender Information Value Date Recorded Sex Assigned at Female 09/20/2021 12:29 PM WEIGHT CALCULATOR Gender Identity Female 09/20/2021 12:29 PM WEIGHT CALCULATOR Sexual Orientation Straight 09/20/2021 12 :29 PM WEIGHT CALCULATOR documented as of this encounter Miscellaneous Notes * Telephone Encounter - Sommer López RN - 06/03/2018 8:10 AM CDT Images from the original note were not included. documented in this encounter Plan of Treatment Not on file documented as of this encounter Visit Diagnoses Diagnosis HTN, goal below 140/90 Unspecified essential hypertension documented in this encounter Additional Health Concerns Assessment Noted Time PHQ-9 Depression Total Score: 3 08/06/20 17 10:09 AM CDT documented as of this encounter Care Teams Wreath And Garland Maker Relationship Specialty Start Date End Date Tacos Galindo PA-C PCP - General Physician Ear Nose And Throat Specialist - Medical 10/19/17 05/29/19 Tacos Galindo PA-C [address] [facility] [id number] PCP - Assigned PCP 10/21/17 12/10/18 Tacos Galindo PA-C [address] [facility] QIU [id number] Assigned PCP 10/21/17 09/10/21 documented as of this encounter
--- OUTSIDE RECORDS SUMMARY | 2023-11-13 08:32 | XMS_ITS | Encounter Summary ---
Author Name Unknown Organization [place] Address [address] [place] [address]. [place] [address] Care Team Providers Care Undertaker Assistant Name Role Phone Reshma Gordon APRN MANAGER BABY Primary Care Provider + Tacos Galindo PA-C Primary Care Provider Tacos Galindo PA-C Unavailable + Tacos Galindo PA-C Unavailable + Reason for Visit * Reason Onset Date Comments Refill Request 09/25/2017 simvastatin (ZOC OR) 40 MG tablet Encounter Details Date Type Department Care Team (Late st Contact Info) Description 09/25/2017 Refill M [address] [phone] Reshma Gordon APRN [address] [address] Refill Request (simvastatin (ZOCOR) 40 MG tablet) Social History Tobacco Use Types Packs/Day Years Used Date Smoking Tobacco: Never Smokeless Tobacco: Never Alcohol Use Standard Drinks/Week Comments No 0 (1 standard drink = 0.6 oz pur e alcohol) rarely Sex and Gender Information Value Date Recorded Sex Assigned at Female 09/20/2021 12:29 PM SAUSAGE STUFFER Gender Identity Female 09/20/2021 12:29 PM SAUSAGE STUFFER Sexual Orientation Straight 09/20/2021 12 :29 PM SAUSAGE STUFFER documented as of this encounter Miscellaneous Notes * Telephone Encounter - Julita Bueno, RN - 09/25/2017 1:58 PM CST Medication is being filled for 1 time refill only due to: Patient will be due for repeat lipid panel in October 2017. Left a message for patient with request to schedule an appointment Lab Results Component Value Date CHOL 196 10/18/2016 Lab Results Component Value Date HDL 69 10/18/2016 Lab Results Component Value Date LDL 111 10/18/2016 Lab Results Component Value Date TRIG 80 10/18/2016 Lab Results Component Value Date CHOLHDLRATIO 2.9 05/19/2015 DESEAN Yan RN [facility] AGE STUFFER * Telephone Encounter - Homer Osorio - 09/25/2017 1:29 PM CST simvastatin (ZOCOR) 40 MG tablet Last Written Prescription Date: 10/18/16 Last Fill Quantity: 90, # refills: 3 Last Office Visit: 08/13/17 Future Office visit: Routing refill request to provider for review/approval because: Does not meet protocol criteria AGE STUFFER documented in this encounter Plan of Treatment Not on file documented as of this encounter Visit Diagnoses Diagnosis Hyperlipidemia LDL goal <130 Other and unspecified hyperlipidemia documented in this encounter Additional Health Concerns Assessment Noted Time PHQ-9 Depression Total Score: 3 08/06/20 17 10:09 AM CDT documented as of this encounter Care Teams Undertaker Assistant Relationship Specialty Start Date End Date Reshma Gordon, PEÑA MANAGER BABY [address] [place] [address] PCP - General Nurse Practitioner - Family 08/18/13 10/18/17 Tacos Galindo PA-C [address] [place] [address] PCP - General Physician Elevator Builder - Medical 10/19/17 05/29/19 Tacos Galindo PA-C [address] [place] [place] [address] PCP - Assigned PCP 10/21/17 12/10/18 Tacos Galindo PA-C [address] [facility] [place] [address] Assigned PCP 10/21/17 09/10/21 documented as of this encounter
--- OUTSIDE RECORDS SUMMARY | 2023-11-13 08:32 | XMS_ITS | Encounter Summary ---
Author Name Unknown Organization [place] Address [facility] [place] [address] Care Team Providers Care Twister Doffer Name Role Phone Tacos Galindo PA-C Unavailable + [phone] Encounter Details Date Type Department Care Team (Late st Contact Info) Description 09/02/2019 MyC Medical Advice [address] [address] Yara Burleson, RN CARDIAC CATH Social History Tobacco Use Types Packs/Day Years Used Date Smoking Tobacco: Never Smokeless Tobacco: Never Alcohol Use Standard Drinks/Week Comments No 0 (1 standard drink = 0.6 oz pur e alcohol) rarely PHQ-2 Answer Date Recorded PHQ-2 Score 0 09/05/2018 Sex and Gender Information Value Date Recorded Sex Assigned at Female 09/20/2021 12:29 PM STOCK CLERK SELF SERVICE STORE Gender Identity Female 09/20/2021 12:29 PM STOCK CLERK SELF SERVICE STORE Sexual Orientation Straight 09/20/2021 12 :29 PM STOCK CLERK SELF SERVICE STORE documented as of this encounter Plan of Treatment Not on file documented as of this encounter Visit Diagnoses Not on filedocumented in this encounter Additional Health Concerns Assessment Noted Time PHQ-9 Depression Total Score: 3 09/05/20 18 12:23 PM STOCK CLERK SELF SERVICE STORE documented as of this encounter Care Teams Twister Doffer Relationship Specialty Start Date End Date Tacos Galindo PA-C [address] [facility] [place] [place] [address] Assigned PCP 10/21/17 09/10/21 documented as of this encounter
--- OUTSIDE RECORDS SUMMARY | 2023-11-13 08:32 | XMS_ITS | Encounter Summary ---
Author Name Unknown Organization [place] Address [address] [place] [address]. [place] [address] Care Team Providers Care Field Service Specialist Name Role Phone Reshma Gordon APRN MARKETING ACCOUNT EXECUTIVE Primary Care Provider + Tacos Galindo PA-C Primary Care Provider Tacos Galindo PA-C Unavailable + Tacos Galindo PA-C Unavailable + Encounter Details Date Type Department Care Team (Late st Contact Info) Description 05/10/2015 MyC Medical Advice [address] [phone] Janelle Stovall CMA Social History Tobacco Use Types Packs/Day Years Used Date Smoking Tobacco: Never Smokeless Tobacco: Never Alcohol Use Standard Drinks/Week Comments No 0 (1 standard drink = 0.6 oz pur e alcohol) rarely Sex and Gender Information Value Date Recorded Sex Assigned at Female 09/20/2021 12:29 PM VETERINARY PRACTITIONER Gender Identity Female 09/20/2021 12:29 PM VETERINARY PRACTITIONER Sexual Orientation Straight 09/20/2021 12 :29 PM VETERINARY PRACTITIONER documented as of this encounter Plan of Treatment Not on file documented as of this encounter Visit Diagnoses Not on filedocumented in this encounter Care Teams Field Service Specialist Relationship Specialty Start Date End Date Reshma Gordon APRN CNP [address] [place], [place] [address]E [facility] [address] [place], [place] [address] PCP - General Nurse Practitioner - Family 08/18/13 10/18/17 Tacos Galindo PA-C [address] [place] [address] PCP - General Physician General Service Technician - Medical 10/19/17 05/29/19 Tacos Galindo PA-C [address] [facility] [place] [address] PCP - Assigned PCP 10/21/17 12/10/18 Tacos Galindo PA-C [address] [address] [place] [id number] Assigned PCP 10/21/17 09/10/21 documented as of this encounter
--- NOTE | 2023-11-13 08:45 | CRLHL7_ITS ---
For Patients: As a result of the Century Cures Act, medical imaging exams and procedure reports are released immediately into your electronic medical record. You may view this report before your referring provider. If you have questions, please contact your health care provider. BILATERAL CAROTID ULTRASOUND CLINICAL HISTORY: Abnormal findings on dental x-ray. TECHNIQUE: The carotid circulations and the vertebral arteries in the neck were examined with thompson-scale ultrasound, color-flow and Doppler spectral analysis. Degrees of stenosis were determined using SRU 2002 Consensus Panel Criteria. FINDINGS: Irregular echogenic plaque in the right ICA. Minimal smooth plaque in the left ICA. Normal velocities with no evidence for hemodynamically significant stenosis. Both vertebral arteries are patent with antegrade flow. Multiphasic waveforms in the subclavian arteries. PEAK SYSTOLIC VELOCITY RIGHT: Subclavian A: 92.4. Distal CCA: 92.9. Mid CCA: 91.0 Prox ICA: 83.7. Mid ICA: 83.7. Distal ICA: 91.0. ICA/CCA Ratio: 0.97. Vertebral artery: 36.2, antegrade. LEFT: Subclavian A: 100.3. Distal CCA: 76.0. Mid CCA: 72.3 Prox ICA: 98.4. Mid ICA: 71.1. Distal ICA: 78.1. ICA/CCA Ratio: 1.15. Vertebral artery: 57.2, antegrade. IMPRESSION: No evidence for hemodynamically significant carotid stenosis. Redd Treviño M.D. Body/Diagnostic Radiologist [email or web address] SP/Dictated by: Redd Treviño MD @ 11/14/2023 9:54:00 AM (Electronically Signed)
== END 2023-11-13 08:30 | disposition home or self-care (01) ==
LOC: US 08:29
PROVIDERS: PCP Family Medicine; Visit Provider Family Medicine
DX: R22.1 Localized swelling, mass and lump, neck (principal)
CPT/HCPCS: 93880

== ENCOUNTER 2023-12-28 07:30 | Outpatient (RCR) | payer OTHER, SELFPAY ==
--- NOTE | 2023-12-12 08:49 | PT.OPEX ---
PT [place] Outpatient Eval PT [facility] Outpatient Eval Start: 12/12/23 07:25 Freq: Status: Active Protocol: Document 12/12/23 07:26 CRP (Rec: 12/12/23 08:46 CRP [id number]) E-signed By Dav Huizar PT Physical Therapy Outpatient Evaluation Insurance Information Recert Due Date 03/11/24 Insurance Name [facility] Medical Diagnosis Cervical spine pain Referring MD Dr Calvin Subjective Subjective Pt reports primarily tightness L side of the neck to the L shoulder. Nov 6ht had an US that caused her to hold her head to the R. Since then she has been sore and stiff. Difficult finding a comfortable position. Has had some slight dizziness. Ibuprofen, ice did not help. Is taking Medrol dose pack and is taking Celebrex since Sunday. Overall she is somewhat better. Has had a hx of feeling a little dizziness that may have increased somewhat with taking Celebrex. Pt reports constant tightness at L neck into upper trap and upper back. Tends to get worse by the end of the day. Sxs increase with looking up prolonged looking down. Prior to meds she was waking in the middle of the night due to her neck. Pt denies numbness or tingling into extremities. Denies dysphagia, dysarthria, diplopia, drop attacks or becoming nauseated. Pt is retired. When getting the US her head was turned with a little bit of ext for about [address] No hx of neck issues. Pain Comments -01/15 Current Work Status Retired Preferred Name [employer] Objective Other/Pertinent Objective Posture: forward head with hinge mid cervical spine Cervical ROM: flex WNL, ext mod dec, Bilat rot 25-50% dec with L sided sxs, R SB min dec with L sided sxs, L SB WNL UE ROM WNL bilat MMT: myotomes WNL CN testing WNL Segmental testing: UPAs painful C3-7 on the L. Distraction - felt good. Suboccip restriction noted Assessment Assessment/Impression Pt presents to the clinic with c.o L sided neck pain as a result of a postural strain. Pt shows loss of rotational ROM and motor control along with poor postural control through the cervicothoracic spine. Segmental dysfunction is noted at the L side C3-7 with noted hypomobility. Skilled PT is recommended to incorporate ther ex, nm christel, manual therapy and pt education to decrease pain and improve functional mobility. Plan of Care Rehabilitation Potential Excellent Physical Therapy Goals 1. Pt will be independent with HEP in 6 weeks. 2. Pt will turn head to check traffic without pain in 8 weeks. 3. Pt will complete locomotive lubricating systems clerk without c.o pain in 12 weeks. Coordination/Communication With Referral Source Frequency/Duration 1x/wk for 12 weeks Patient Will Be Discharged From Therapy Completion of LTG(s),Skills Plateau,Independent w/HEP, Independently Progressing Evaluation Billing Untimed Code Treatment Minutes 30 Complexity Moderate Certification Information Initial Certification Date 12/12/23 Ending Certification Date 03/11/24 Provider Signature Shows Agreement With POC & Medical Necessity Physician Signature & Date Requested Please Sign/Date Here Physician Comment/Change : Physician NPI Number #
== END 2024-04-26 23:59 | disposition home or self-care (01) ==
PROVIDERS: PCP Family Medicine; Visit Provider Family Medicine
DX: M54.2 Cervicalgia (principal); Z51.89 Encounter for other specified aftercare
CPT/HCPCS: 97110; 97140; 97162

== ENCOUNTER 2024-04-14 08:23 | Outpatient (CLI) | payer OTHER, SELFPAY ==
--- OUTSIDE RECORDS SUMMARY | 2024-04-14 15:25 | XMS_ITS | Referral Summary ---
Author Organization [place] Address [address] [place] [address]. [place] [address] Care Team Providers Care Loom Operator Name Role Phone Unavailable Primary Care Provider Unavailabl e Allergies Active Allergy Reactions Criticality Noted Date Comments Erythromycin Shortness Of Breath,Hives High 10/26/19 11 Mxdekxnp-Ejprdutce-Jvnmjnrzw n Rash Low 03/06/2012 Medications Medication Sig Dispensed Refills Start Date End Date Status Cholecalciferol (VITAMIN D) 2000 UNIT CAPS Take by mouth daily. Active Multiple Vitamin (MULTIVITAMINS PO) Take by mouth daily. Active Misc Natural Products (GLUCOSAMINE CHONDROITIN ADV PO) Take by mouth daily. Active Calcium Carbonate (CALCIUM 600 PO) Take by mouth 2 times daily. Active coenzyme Q-10 (CO Q-10) 200 MG CAPS Take 200 mg by mouth daily. Active aspirin 81 MG tablet Take 1 [...] by mouth 3 times daily 21 tablet 06/13/2018 Active triamterene-HCTZ (MAXZIDE-25) 37.5-25 MG tabletIndications:HTN , goal below 140/90 Take 0.5 tablets by mouth daily 90 tablet 09/05/2018 Active atorvastatin (LIPITOR) 20 MG tabletIndications:Hyp erlipidemia LDL goal <130 TAKE 1 TABLET (20 MG) BY MOUTH DAILY 90 tablet 1 09/05/2018 Active Active Problems Problem Noted Date Diagnosed Date Family history of stroke 09/05/2018 Chronic pain of right ankle 10/18/2016 HTN, goal below 140/90 03/12/2012 Hyperlipidemia LDL goal <130 03/01/2011 Resolved Problems Problem Noted Date Diagnosed Date Resolved Date Advanced directives, counseling/discussion 03/12/2012 03/24/2024 Overview: Advance Care Planning 01/03/2017: Receipt of ACP document: Received: Health Care Directive which was witnessed or notarized on 12/17/2014. Document previously scanned on 10/20/2016. Validation form completed and scanned. Code Status needs to be updated to reflect choices in most recent ACP document. Confirmed/documented designated decision maker(s). Added by Julita Bhagat [facility] Advance Care Planning Liaison Advance Care Planning 03/12/2012: Patient states has Advance Directive and will bring in a copy to clinic. Added by Janelle Stovall Pain in joint, ankle and foot 01/04/2011 [...] Sex Assigned at Female 09/20/2021 12:29 PM CAR PICK UP DRIVER Gender Identity Female 09/20/2021 12:29 PM CAR PICK UP DRIVER Sexual Orientation Straight 09/20/2021 12 :29 PM CAR PICK UP DRIVER Last Filed Vital Signs Vital Sign Reading Time Taken Comments Blood Pressure 148/80 09/05/2018 10:34 AM CAR PICK UP DRIVER Pulse 66 09/05/2018 10:34 AM CAR PICK UP DRIVER Temperature 36.9 ??C (98.4 ??F) 09/05/2018 10:[address] Respiratory Rate 12 09/05/2018 10:34 AM CAR PICK UP DRIVER Oxygen Saturation 98% 10/19/2017 1:08 PM CAR PICK UP DRIVER Inhaled Oxygen Concentration - - Weight 83 kg (183 lb) 09/05/2018 10:34 AM CAR PICK UP DRIVER Height 156.2 cm (5' 1.5) 10/19/2017 1:08 PM CAR PICK UP DRIVER Body Mass Index 34.02 10/19/2017 1:08 PM CAR PICK UP DRIVER Plan of Treatment Not on file Advance Directives For more information, please contact: [phone] Documents on File Type Date Recorded Patient Lumber Handler Expl anation Advance Directives and Living Will 10/20/2016 9:49 AM Health Care Directiv e 12/17/14 Healthcare Agents on File Name Relationship Healthcare Agent Relationship Communication Magdi Farfan Spouse Health Care Agent [email or web address] Josh Farfan Son First Alternate Health Care Agent
--- OUTSIDE RECORDS SUMMARY | 2024-04-14 15:25 | XMS_ITS | Encounter Summary ---
Author Organization [place] Address Counts include 234 beds at the [facility] [address] Care Team Providers Care Wire Steward Name Role Phone Tacos Galindo PA-C Primary Care Provider Tacos Galindo PA-C Unavailable + [phone] Tacos Galindo PA-C Unavailable + [phone] Reason for Visit * Reason Onset Date Comments Shingles 06/13/2018 E-visit submitte d Encounter Details Date Type Department Care Team (Late st Contact Info) Description 06/13/2018 MyC Medical Advice [address], [address] [place] [address] Tacos Galindo PA-C [address] [place] [address] Iram (E-visit submitted) Social History Tobacco Use Types Packs/Day Years Used Date Smoking Tobacco: Never Smokeless Tobacco: Never Alcohol Use Standard Drinks/Week Comments No 0 (1 standard drink = 0.6 oz pur e alcohol) rarely Sex and Gender Information Value Date Recorded Sex Assigned at Female 09/20/2021 12:29 PM PRESCHOOL ASSISTANT DIRECTOR Gender Identity Female 09/20/2021 12:29 PM PRESCHOOL ASSISTANT DIRECTOR Sexual Orientation Straight 09/20/2021 12 :29 PM PRESCHOOL ASSISTANT DIRECTOR documented as of this encounter Miscellaneous Notes [...] documented as of this encounter Care Teams Wire Steward Relationship Specialty Start Date End Date Tacos Galindo PA-C PCP - General Physician Facilities Technician - Medical 10/19/17 05/29/19 Tacos Galindo PA-C [address] [facility] [place] [id number] PCP - Assigned PCP 10/21/17 12/10/18 Tacos Galindo PA-C [address] [facility] [place] [address] Assigned PCP 10/21/17 09/10/21 documented as of this encounter
--- OUTSIDE RECORDS SUMMARY | 2024-04-14 15:25 | XMS_ITS | Clinical Summary ---
Author Organization [place] Address [address] [place] [address]. [place] [address] Care Team Providers Care Training And Quality Manager Name Role Phone Unavailable Primary Care Provider Unavailabl e Allergies Active Allergy Reactions Criticality Noted Date Comments Erythromycin Shortness Of Breath,Hives High 10/26/19 11 Nipplpyk-Wttcaxxqk-Cciwcndvg n Rash Low 03/06/2012 Medications Medication Sig [...] designated decision maker(s). Added by Julita Bhagat [facility] Advance Care Planning Liaison Advance Care Planning [...] Sex Assigned at Female 09/20/2021 12:29 PM PLANT OPERATOR/SHIFT SUPERVISOR Gender Identity Female 09/20/2021 12:29 PM PLANT OPERATOR/SHIFT SUPERVISOR Sexual Orientation Straight 09/20/2021 12 :29 PM PLANT OPERATOR/SHIFT SUPERVISOR Last Filed Vital Signs Vital Sign Reading Time Taken Comments Blood Pressure 148/80 09/05/2018 10:34 AM PLANT OPERATOR/SHIFT SUPERVISOR Pulse 66 09/05/2018 10:34 AM PLANT OPERATOR/SHIFT SUPERVISOR Temperature 36.9 ??C (98.4 ??F) 09/05/2018 10:[address] Respiratory Rate 12 09/05/2018 10:34 AM PLANT OPERATOR/SHIFT SUPERVISOR Oxygen Saturation 98% 10/19/2017 1:08 PM PLANT OPERATOR/SHIFT SUPERVISOR Inhaled Oxygen Concentration - - Weight 83 kg (183 lb) 09/05/2018 10:34 AM PLANT OPERATOR/SHIFT SUPERVISOR Height 156.2 cm (5' 1.5) 10/19/2017 1:08 PM PLANT OPERATOR/SHIFT SUPERVISOR Body Mass Index 34.02 10/19/2017 1:08 PM PLANT OPERATOR/SHIFT SUPERVISOR Plan of Treatment Not on file Advance Directives For more information, please contact: [phone] Documents on File Type Date Recorded Patient Vessel Operator Expl anation Advance Directives and Living Will 10/20/2016 9:49 AM Health Care Directiv e 12/17/14 Healthcare Agents on File Name Relationship Healthcare Agent Relationship Communication Magdi Farfan Spouse Health Care Agent [email or web address] Josh Farfan Son First Alternate Health Care Agent
--- OUTSIDE RECORDS SUMMARY | 2024-04-14 15:25 | XMS_ITS | Encounter Summary ---
Author Organization [place] Address [facility] [place] [address] Care Team Providers Care Tool Planner Name Role Phone Tacos Galindo PA-C Unavailable [phone] Reason for Visit * Reason Onset Date Comments Panel Management 09/02/2019 Encounter Details Date Type Department Care Team (Late st Contact Info) Description 09/02/2019 [facility] [address], [address] [place] [address] Tacos Galindo PA-C [address] [place], [place] [id number] Panel Management Social History Tobacco Use Types Packs/Day Years Used Date Smoking Tobacco: Never Smokeless Tobacco: Never Alcohol Use Standard Drinks/Week Comments No 0 (1 standard drink = 0.6 oz pur e alcohol) rarely PHQ-2 Answer Date Recorded PHQ-2 Score 0 09/05/2018 Sex and Gender Information Value Date Recorded Sex Assigned at Female 09/20/2021 12:29 PM ORAL AND MAXILLOFACIAL SURGERY RESIDENT Gender Identity Female 09/20/2021 12:29 PM ORAL AND MAXILLOFACIAL SURGERY RESIDENT Sexual Orientation Straight 09/20/2021 12 :29 PM ORAL AND MAXILLOFACIAL SURGERY RESIDENT documented as of this encounter Miscellaneous Notes * Telephone Encounter - Yara Burleson CMA - 09/09/2019 1:39 PM CST Patient [facility] to [facility]. Yara Burleson MA AND MAXILLOFACIAL SURGERY RESIDENT * Telephone Encounter - Yara Burleson CMA [...] needs referral/order: FIT Type of outreach: Sent [employer] message. Questions for provider review: None Yara Burleson MA Chart routed to Care Team . AND MAXILLOFACIAL SURGERY RESIDENT documented in this encounter Plan of Treatment Not on file documented as of this encounter Visit Diagnoses Not on filedocumented in this encounter Additional Health Concerns Assessment Noted Time PHQ-9 Depression Total Score: 3 09/05/20 18 12:23 PM ORAL AND MAXILLOFACIAL SURGERY RESIDENT documented as of this encounter Care Teams Tool Planner Relationship Specialty Start Date End Date Tacos Galindo PA-C [address] [place] [address] Assigned PCP 10/21/17 09/10/21 documented as of this encounter
--- OUTSIDE RECORDS SUMMARY | 2024-04-14 15:25 | XMS_ITS | Encounter Summary ---
Author Organization [place] Address [facility] [place] [address] Care Team Providers Care Joinery Patternmaker Name Role Phone Tacos Galindo PA-C Unavailable + [phone] Encounter Details Date Type Department Care Team (Late st Contact Info) Description 09/02/2019 [facility] Medical Advice [address] [address] Yara Burleson, [facility] Social History Tobacco Use Types Packs/Day Years Used Date Smoking Tobacco: Never Smokeless Tobacco: Never Alcohol Use Standard Drinks/Week Comments No 0 (1 standard drink = 0.6 oz pur e alcohol) rarely PHQ-2 Answer Date Recorded PHQ-2 Score 0 09/05/2018 Sex and Gender Information Value Date Recorded Sex Assigned at Female 09/20/2021 12:29 PM THERAPEUTIC SPECIALIST Gender Identity Female 09/20/2021 12:29 PM THERAPEUTIC SPECIALIST Sexual Orientation Straight 09/20/2021 12 :29 PM THERAPEUTIC SPECIALIST documented as of this encounter Plan of Treatment Not on file documented as of this encounter Visit Diagnoses Not on filedocumented in this encounter Additional Health Concerns Assessment Noted Time PHQ-9 Depression Total Score: 3 09/05/20 18 12:23 PM THERAPEUTIC SPECIALIST documented as of this encounter Care Teams Joinery Patternmaker Relationship Specialty Start Date End Date Tacos Galindo PA-C [address] [place] [address] Assigned PCP 10/21/17 09/10/21 documented as of this encounter
--- OUTSIDE RECORDS SUMMARY | 2024-04-14 15:26 | XMS_ITS | Encounter Summary ---
Author Organization [place] Address [address] [place] [address]. [place] [address] Care Team Providers Care Director Of Global Sales Name Role Phone Tona Williamson PA-C Primary Care Provi domingo Reshma Gordon APRN, CNP Primary Care Provider + Tacos Galindo PA-C Primary Care Provider Tacos Galindo PA-C Unavailable + Tacos Galindo PA-C Unavailable + Reason for Visit * Reason Onset Date Comments Refill Request 06/02/2012 Encounter Details Date Type Department Care Team (Late st Contact Info) Description 06/02/2012 [facility] [place] [address] [phone] Tona Williamson PA-C [place] [address] Refill Request Social History Tobacco Use Types Packs/Day Years Used Date Smoking Tobacco: Never Smokeless Tobacco: Never Alcohol Use Standard Drinks/Week Comments No 0 (1 standard drink = 0.6 oz pur e alcohol) rarely Sex and Gender Information Value Date Recorded Sex Assigned at Female 09/20/2021 12:29 PM BUSINESS CONTINUITY PLANNER Gender Identity Female 09/20/2021 12:29 PM BUSINESS CONTINUITY PLANNER Sexual Orientation Straight 09/20/2021 12 :29 PM BUSINESS CONTINUITY PLANNER documented as of this encounter Miscellaneous Notes * Telephone Encounter - Delmi Graydontrell Berg - 06/03/2012 10:25 AM CDTMessage from [facility]: Original authorizing provider: KELLY Oliveros would like a refill of the following medications: triamterene-hydrochlorothiazide (MAXZIDE-25) 37.5-25 MG per tablet [Tona Williamson PA-C] Preferred pharmacy: [facility] Comment: documented in this encounter Plan of Treatment Not on file documented as of this encounter Visit Diagnoses Diagnosis HTN (hypertension) Unspecified essential hypertension documented in this encounter Care Teams Director Of Global Sales Relationship Specialty Start Date End Date Tona Williamson PA-C PCP - General Physician Associate Civil Engineer 10/25/10 08/17/13 Reshma Gordon APRN CNP [address] [place] [address] PCP - General Nurse Practitioner - Family 08/18/13 10/18/17 Tacos Galindo PA-C [address] [place] [address] PCP - General Physician Associate Civil Engineer - Medical 10/19/17 05/29/19 Tacos Galindo PA-C [address] [place], [place] [id number] PCP - Assigned PCP 10/21/17 12/10/18 Tacos Galindo PA-C [address] [place], [place] [id number] Assigned PCP 10/21/17 09/10/21 documented as of this encounter
--- OUTSIDE RECORDS SUMMARY | 2024-04-14 15:26 | XMS_ITS | Encounter Summary ---
Author Organization [place] Address [address] [place] [address]. [place] [address] Care Team Providers Care Grinder Set Up Operator Internal Name Role Phone Tona Williamson PA-C Primary Care Provi domingo Reshma Gordon APRN, CNP Primary Care Provider + Tacos Galindo PA-C Primary Care Provider Tacos Galindo PA-C Unavailable + Tacos Galindo PA-C Unavailable [phone] Reason for Visit * Reason Onset Date Comments Refill Request 12/12/2012 Encounter Details Date Type Department Care Team (Late st Contact Info) Description 12/12/2012 [facility] [place] [address] [phone] Toan Williamson PA-C [place] [address] Refill Request Social History Tobacco Use Types Packs/Day Years Used Date Smoking Tobacco: Never Smokeless Tobacco: Never Alcohol Use Standard Drinks/Week Comments No 0 (1 standard drink = 0.6 oz pur e alcohol) rarely Sex and Gender Information Value Date Recorded Sex Assigned at Female 09/20/2021 12:29 PM FORCER MAKER Gender Identity Female 09/20/2021 12:29 PM FORCER MAKER Sexual Orientation Straight 09/20/2021 12 :29 PM FORCER MAKER documented as of this encounter Plan of Treatment Not on file documented as of this encounter Visit Diagnoses Diagnosis Hypercholesterolemia- Primary Pure hypercholesterolemia documented in this encounter Care Teams Grinder Set Up Operator Internal Relationship Specialty Start Date End Date Tona Williamson PA-C PCP - General Physician Manpower Development Specialist Manager 10/25/10 08/17/13 Reshma Gordon APRN NIB FINISHER [address] [place] [address] PCP - General Nurse Practitioner - Family 08/18/13 10/18/17 Tacos Galindo PA-C [address] [place] [address] PCP - General Physician Manpower Development Specialist Manager - Medical 10/19/17 05/29/19 Tacos Galindo PA-C [address] [place] [address] PCP - Assigned PCP 10/21/17 12/10/18 Tacos Galindo PA-C [address] [place], [place] [id number] Assigned PCP 10/21/17 09/10/21 documented as of this encounter
--- OUTSIDE RECORDS SUMMARY | 2024-04-14 15:26 | XMS_ITS | Encounter Summary ---
Author Organization [place] Address [address] [place] [address]. [place] [address] Care Team Providers Care Hospital Admissions Officer Name Role Phone Tacos Galindo PA-C Primary Care Provider Tacos Galindo PA-C Unavailable + [phone] Tacos Galindo PA-C Unavailable + [phone] Encounter Details Date Type Department Care Team (Late st Contact Info) Description 10/25/2017 [facility] [address], [address] [place] [address] Tacos Galindo PA-C [address] [place] [address] Social History Tobacco Use Types Packs/Day Years Used Date Smoking Tobacco: Never Smokeless Tobacco: Never Alcohol Use Standard Drinks/Week Comments No 0 (1 standard drink = 0.6 oz pur e alcohol) rarely Sex and Gender Information Value Date Recorded Sex Assigned at Female 09/20/2021 12:29 PM SITE INTERPRETER Gender Identity Female 09/20/2021 12:29 PM SITE INTERPRETER Sexual Orientation Straight 09/20/2021 12 :29 PM SITE INTERPRETER documented as of this encounter Plan of Treatment Not on file documented as of this encounter Visit Diagnoses Not on filedocumented in this encounter Additional Health Concerns Assessment Noted Time PHQ-9 Depression Total Score: 3 08/06/20 17 10:09 AM CDT documented as of this encounter Care Teams Hospital Admissions Officer Relationship Specialty Start Date End Date Tacos Galindo PA-C PCP - General Physician Seo Specialist - Medical 10/19/17 05/29/19 Tacos Galindo PA-C [address] [place] [address] PCP - Assigned PCP 10/21/17 12/10/18 Tacos Galindo PA-C [address] [place] [address] Assigned PCP 10/21/17 09/10/21 documented as of this encounter
--- OUTSIDE RECORDS SUMMARY | 2024-04-14 15:26 | XMS_ITS | Encounter Summary ---
Author Organization [place] Address [address] [place] [address]. [place] [address] Care Team Providers Care Grounds Maintenance Manager Name Role Phone Tacos Galindo PA-C Primary Care Provider Tacos Galindo PA-C Unavailable + [phone] Tacos Galindo PA-C Unavailable + [phone] Encounter Details Date Type Department Care Team (Late st Contact Info) Description 12/19/2017 [facility] [address], [address] [place] [address] Taocs Galindo PA-C [address] [place] [address] Hyperlipidemia LDL goal <130 Social History Tobacco Use Types Packs/Day Years Used Date Smoking Tobacco: Never Smokeless Tobacco: Never Alcohol Use Standard Drinks/Week Comments No 0 (1 standard drink = 0.6 oz pur e alcohol) rarely Sex and Gender Information Value Date Recorded Sex Assigned at Female 09/20/2021 12:29 PM EMAIL OPERATIONS MANAGER Gender Identity Female 09/20/2021 12:29 PM EMAIL OPERATIONS MANAGER Sexual Orientation Straight 09/20/2021 12 :29 PM EMAIL OPERATIONS MANAGER documented as of this encounter Miscellaneous Notes * Telephone Encounter - Janette Saavedra RN - 12/19/2017 4:17 PM CDT Replied to the Pt. See below. Sent in 90 day supply. Janette Saavedra, RN -- [facility] documented in this encounter Plan of Treatment Not on file documented as of this encounter Visit Diagnoses Diagnosis Hyperlipidemia LDL goal <130 Other and unspecified hyperlipidemia documented in this encounter Additional Health Concerns Assessment Noted Time PHQ-9 Depression Total Score: 3 08/06/20 17 10:09 AM CDT documented as of this encounter Care Teams Grounds Maintenance Manager Relationship Specialty Start Date End Date Tacos Galindo PA-C PCP - General Physician Roll Mechanic - Medical 10/19/17 05/29/19 Tacos Galindo PA-C [address] [place] [address] PCP - Assigned PCP 10/21/17 12/10/18 Tacos Galindo PA-C [address] [place] [id number] Assigned PCP 10/21/17 09/10/21 documented as of this encounter
--- OUTSIDE RECORDS SUMMARY | 2024-04-14 15:26 | XMS_ITS | Encounter Summary ---
Author Organization [place] Address [address] [place] [address]. [place] [address] Care Team Providers Care Credit Advisor Name Role Phone Reshma Gordon APRN, CNP Primary Care Provider + Tacos Galindo PA-C Primary Care Provider Tacos Galindo PA-C Unavailable + Tacos Galindo PA-C Unavailable + Encounter Details Date Type Department Care Team (Late st Contact Info) Description 05/10/2015 [facility] Medical Advice [address] [phone] Janelle Stovall CMA Social History Tobacco Use Types Packs/Day Years Used Date Smoking Tobacco: Never Smokeless Tobacco: Never Alcohol Use Standard Drinks/Week Comments No 0 (1 standard drink = 0.6 oz pur e alcohol) rarely Sex and Gender Information Value Date Recorded Sex Assigned at Female 09/20/2021 12:29 PM BATCH BLENDER Gender Identity Female 09/20/2021 12:29 PM BATCH BLENDER Sexual Orientation Straight 09/20/2021 12 :29 PM BATCH BLENDER documented as of this encounter Plan of Treatment Not on file documented as of this encounter Visit Diagnoses Not on filedocumented in this encounter Care Teams Credit Advisor Relationship Specialty Start Date End Date Reshma Gordon APRN CNP [address] [place], [place] [address]E [facility] [address] [place], [place] [address] PCP - General Nurse Practitioner - Family 08/18/13 10/18/17 Tacos Galindo PA-C [address] [place] [address] PCP - General Physician Md Ophthalmologist - Medical 10/19/17 05/29/19 Tacos Galindo PA-C [address] [place] [address] PCP - Assigned PCP 10/21/17 12/10/18 Tacos Galindo PA-C [address] [address] [facility] [place] [id number] Assigned PCP 10/21/17 09/10/21 documented as of this encounter
--- OUTSIDE RECORDS SUMMARY | 2024-04-14 15:26 | XMS_ITS | Encounter Summary ---
Author Organization [place] Address [address] [place] [address]. [place] [address] Care Team Providers Care Small Business Director Name Role Phone Reshma Gordon APRN SECY Primary Care Provider + Tacos Galindo PA-C Primary Care Provider Tacos Galindo PA-C Unavailable + Tacos Galindo PA-C Unavailable +[phone] Reason for Visit * Reason Onset Date Comments Medication Follow-up 05/28/2015 Do a med re c Encounter Details Date Type Department Care Team (Late st Contact Info) Description 05/28/2015 [facility] Advice M [address] [phone] Reshma Gordon APRN [address] [address] Medication Follow-up (Do a med rec) Social History Tobacco Use Types Packs/Day Years Used Date Smoking Tobacco: Never Smokeless Tobacco: Never Alcohol Use Standard Drinks/Week Comments No 0 (1 standard drink = 0.6 oz pur e alcohol) rarely Sex and Gender Information Value Date Recorded Sex Assigned at Female 09/20/2021 12:29 PM ASSISTANT PURCHASING MANAGER Gender Identity Female 09/20/2021 12:29 PM ASSISTANT PURCHASING MANAGER Sexual Orientation Straight 09/20/2021 12 :29 PM ASSISTANT PURCHASING MANAGER documented as of this encounter Miscellaneous Notes * Telephone Encounter - Persing, Magnolia, RN - 05/31/2015 8:54 AM CDT I messaged pt as below. I re-added the Triamcinolone and discontinued the Desonide per her request.No further action needed at this time. Omid Cabrera Nurse documented in this encounter Plan of Treatment Not on file documented as of this encounter Visit Diagnoses Diagnosis Eczema- Primary Contact dermatitis and other eczema, due to unspecified cause documented in this encounter Care Teams Small Business Director Relationship Specialty Start Date End Date Reshma Gordon APRN SECY [address] [place] [address] PCP - General Nurse Practitioner - Family 08/18/13 10/18/17 Tacos Galindo PA-C [address] [place] [address] PCP - General Physician Electrical Maintenance Man - Medical 10/19/17 05/29/19 Tacos Galindo PA-C [address] [place] [address] PCP - Assigned PCP 10/21/17 12/10/18 Tacos Galindo PA-C [address] [place] [address] Assigned PCP 10/21/17 09/10/21 documented as of this encounter
--- OUTSIDE RECORDS SUMMARY | 2024-04-14 15:26 | XMS_ITS | Encounter Summary ---
Author Organization [place] Address [address] [place] [address]. [place] [address] Care Team Providers Care Pega Developer Name Role Phone Reshma Gordon APRN MOTION GRAPHICS ARTIST Primary Care Provider + Tacos Galindo PA-C Primary Care Provider Tacos Galindo PA-C Unavailable + Tacos Galindo PA-C Unavailable +[phone] Reason for Visit * Reason Onset Date Comments Refill Request 06/17/2014 Encounter Details Date Type Department Care Team (Late st Contact Info) Description 06/17/2014 [place] [address] [address] Reshma Gordon APRN [address] [address] Refill Request Social History Tobacco Use Types Packs/Day Years Used Date Smoking Tobacco: Never Smokeless Tobacco: Never Alcohol Use Standard Drinks/Week Comments No 0 (1 standard drink = 0.6 oz pur e alcohol) rarely Sex and Gender Information Value Date Recorded Sex Assigned at Female 09/20/2021 12:29 PM FOOD SERVICE ASSISTANT Gender Identity Female 09/20/2021 12:29 PM FOOD SERVICE ASSISTANT Sexual Orientation Straight 09/20/2021 12 :29 PM FOOD SERVICE ASSISTANT documented as of this encounter Miscellaneous Notes * Telephone Encounter - Magnolia Noyola RN - 06/17/2014 9:05 AM CDT We gave her a year supply in April. I called in a verbal to the pharmacy, they were just using santo old rx number. It is now ready for her to quill picking machine operator, pt notified as below. Omid Cabrera Nurse * Telephone Encounter - Magnolia Noyola RN - 06/17/2014 9:[address] [facility]: Original authorizing provider: Reshma Gordon NP, MIDDLE OR INTERMEDIATE SCHOOL PRINCIPAL Nadia Appiah would like a refill of the following medications: simvastatin (ZOCOR) 40 MG tablet [Reshma Gordon NP, MIDDLE OR INTERMEDIATE SCHOOL PRINCIPAL] Preferred pharmacy: [id number] Comment: Good morning - I see [...] hyperlipidemia documented in this encounter Care Teams Pega Developer Relationship Specialty Start Date End Date Reshma Gordon, PEÑA DOMINIQUE [address] [place] [address] PCP - General Nurse Practitioner - Family 08/18/13 10/18/17 Tacos Galindo PA-C [address] [place] [address] PCP - General Physician Latin Dancer - Medical 10/19/17 05/29/19 Tacos Galindo PA-C [address] [place] [address] PCP - Assigned PCP 10/21/17 12/10/18 Tacos Galindo PA-C [address] [place] [address] Assigned PCP 10/21/17 09/10/21 documented as of this encounter
--- OUTSIDE RECORDS SUMMARY | 2024-04-14 15:26 | XMS_ITS | Encounter Summary ---
Author Organization [place] Address [address] [place] [address]. [place] [address] Care Team Providers Care Adult Remedial Education Instructor Name Role Phone Reshma Gordon APRN LEAD REFINER Primary Care Provider + Tacos Galindo PA-C Primary Care Provider Tacos Galindo PA-C Unavailable + Tacos Galindo PA-C Unavailable + Reason for Visit * Reason Onset Date Comments Refill Request 09/25/2017 simvastatin (ZOC OR) 40 MG tablet Encounter Details Date Type Department Care Team (Late st Contact Info) Description 09/25/2017 Refill M [address] [phone] Reshma oGrdon APRN [address] [address] Refill Request (simvastatin (ZOCOR) 40 MG tablet) Social History Tobacco Use Types Packs/Day Years Used Date Smoking Tobacco: Never Smokeless Tobacco: Never Alcohol Use Standard Drinks/Week Comments No 0 (1 standard drink = 0.6 oz pur e alcohol) rarely Sex and Gender Information Value Date Recorded Sex Assigned at Female 09/20/2021 12:29 PM ARMATURE BANDER Gender Identity Female 09/20/2021 12:29 PM ARMATURE BANDER Sexual Orientation Straight 09/20/2021 12 :29 PM ARMATURE BANDER documented as of this encounter Miscellaneous Notes [...] Date CHOLHDLRATIO 2.9 05/19/[address] [facility] TURE BANDER * Telephone Encounter - Homer Osorio - 09/25/2017 1:29 PM CST simvastatin (ZOCOR) 40 MG tablet Last Written Prescription Date: 10/18/16 Last Fill Quantity: 90, # refills: 3 Last Office Visit: 08/13/17 Future Office visit: Routing refill request to provider for review/approval because: Does not meet protocol criteria TURE BANDER documented in this encounter Plan of Treatment Not on file documented as of this encounter Visit Diagnoses Diagnosis Hyperlipidemia LDL goal <130 Other and unspecified hyperlipidemia documented in this encounter Additional Health Concerns Assessment Noted Time PHQ-9 Depression Total Score: 3 08/06/20 17 10:09 AM CDT documented as of this encounter Care Teams Adult Remedial Education Instructor Relationship Specialty Start Date End Date Reshma Gordon, PEÑA LEAD REFINER [address] [place] [address] PCP - General Nurse Practitioner - Family 08/18/13 10/18/17 Tacos Galindo PA-C [address] [place] [address] PCP - General Physician Salvage Determiner - Medical 10/19/17 05/29/19 Tacos Galindo PA-C [address] [place] [address] PCP - Assigned PCP 10/21/17 12/10/18 Tacos Galindo PA-C [address] [place] [address] Assigned PCP 10/21/17 09/10/21 documented as of this encounter
--- OUTSIDE RECORDS SUMMARY | 2024-04-14 15:26 | XMS_ITS | Encounter Summary ---
Author Organization [place] Address [facility] [place] [address] Care Team Providers Care Software Controls Engineer Name Role Phone Tacos Galindo PA-C Primary Care Provider Tacos Galindo PA-C Unavailable + [phone] Tacos Galindo PA-C Unavailable + [phone] Reason for Visit * Reason Onset Date Comments Medication Question 06/01/2018 Lisinopril a nd Amlodipine dosing Encounter Details Date Type Department Care Team (Late st Contact Info) Description 06/01/2018 [facility] Medical Advice [address], [address] [place] [address] Tacos Galindo PA-C [address] [place] [address] Medication Question (Lisinopril and Amlodi... Social History Tobacco Use Types Packs/Day Years Used Date Smoking Tobacco: Never Smokeless Tobacco: Never Alcohol Use Standard Drinks/Week Comments No 0 (1 standard drink = 0.6 oz pur e alcohol) rarely Sex and Gender Information Value Date Recorded Sex Assigned at Female 09/20/2021 12:29 PM SAP TECHNICAL DEVELOPER Gender Identity Female 09/20/2021 12:29 PM SAP TECHNICAL DEVELOPER Sexual Orientation Straight 09/20/2021 12 :29 PM SAP TECHNICAL DEVELOPER documented as of this encounter Miscellaneous Notes [...] documented as of this encounter Care Teams Software Controls Engineer Relationship Specialty Start Date End Date Tacso Galindo PA-C PCP - General Physician Paint Prep Technician - Medical 10/19/17 05/29/19 Tacos Galindo PA-C [address]23[address] [place] [id number] PCP - Assigned PCP 10/21/17 12/10/18 Tacos Galindo PA-C [address]45[address] [place] Q[place] [id number] Assigned PCP 10/21/17 09/10/21 documented as of this encounter
--- OUTSIDE RECORDS SUMMARY | 2024-04-14 15:26 | XMS_ITS | Encounter Summary ---
Author Organization [facility] Address [address] [place] [address]. [place] [address] Care Team Providers Care Spanish Speaking Nanny Name Role Phone Reshma Gordon APRN SILK SNAPPER Primary Care Provider + Tacos Galindo PA-C Primary Care Provider Tacos Galindo PA-C Unavailable + Tacos Galindo PA-C Unavailable +[phone] Reason for Visit * Reason Onset Date Comments Refill Request 08/29/2013 Encounter Details Date Type Department Care Team (Late st Contact Info) Description 08/29/2013 MyC Migdalia Berg [address] [phone] Reshma Gordon APRN [address] [address] Refill Request Social History Tobacco Use Types Packs/Day Years Used Date Smoking Tobacco: Never Smokeless Tobacco: Never Alcohol Use Standard Drinks/Week Comments No 0 (1 standard drink = 0.6 oz pur e alcohol) rarely Sex and Gender Information Value Date Recorded Sex Assigned at Female 09/20/2021 12:29 PM CLINICAL SOCIOLOGIST Gender Identity Female 09/20/2021 12:29 PM CLINICAL SOCIOLOGIST Sexual Orientation Straight 09/20/2021 12 :29 PM CLINICAL SOCIOLOGIST documented as of this encounter Miscellaneous Notes * Telephone Encounter - Maura Stafford - 09/01/2013 12:19 PM CST Pharmacy was called- they said they didn't have the refills on file. I have resent the RX for #90x2. Maura Stafford RN ICAL SOCIOLOGIST * Telephone Encounter - Maura Stafford - 09/01/2013 12:16 PM [facility] From: NADIA APPIAH Sent: SunSep 01, 2013 10:22 AM To: Rd Triage Pod A Subject: RE: Medication Renewal Request - URGENT Hi again I went to lemon picker my RX at [facility] on Sunday - [...] AmLODIPine 2.5 mg at the [facility], [address] [place] [address] as soon aspossible. I am leaving town [...] From: Maura Berg Sent: 08/29/2013 11:35 AM CLINICAL SOCIOLOGIST To: Nadia Appiah Subject: RE: Medication Renewal Request Your medication has been sent to the pharmacy. Maura Stafford RN ----- Message ----- From: NADIA APPIAH Sent: 08/29/2013 9:40 AM CLINICAL SOCIOLOGIST To: Reshma Gordon NP, OUTPATIENT PHYSICAL THERAPIST ASSISTANT Subject: Medication Renewal Request Original authorizing provider: Reshma Gordon NP, OUTPATIENT PHYSICAL THERAPIST ASSISTANT Nadia Appiah would like a refill of the following medications: amLODIPine (NORVASC) 2.5 MG tablet [Reshma Gordon NP, OUTPATIENT PHYSICAL THERAPIST ASSISTANT] Preferred pharmacy: [id number] - [place], [place] - [address] [place] [address] Comment: [facility] says that there are no refills available on my prescription for Amlodipine, although I'm pretty sure that Jenna renewed the prescription during my May visit. Could someone please call [facility] pharmacy to make sure that this prescription can be refilled this weekend?I only have a few tablets left. Thanks! ICAL SOCIOLOGIST documented in this encounter Plan of Treatment Not on file documented as of this encounter Visit Diagnoses Diagnosis HTN, goal below 140/90- Primary Unspecified essential hypertension documented in this encounter Care Teams Spanish Speaking Nanny Relationship Specialty Start Date End Date Reshma Gordon APRN SILK SNAPPER [address] [place], [place] [id number] PCP - General Nurse Practitioner - Family 08/18/13 10/18/17 Tacos Galindo PA-C [address] [place] [address] PCP - General Physician Steak Sauce Maker - Medical 10/19/17 05/29/19 Tacos Galindo PA-C [address] [place] [address] PCP - Assigned PCP 10/21/17 12/10/18 Tacos Galindo PA-C [address] [place] [address] Assigned PCP 10/21/17 09/10/21 documented as of this encounter
--- OUTSIDE RECORDS SUMMARY | 2024-04-14 15:26 | XMS_ITS | Encounter Summary ---
Author Organization [facility] Address [address] [place] [address]. [place] [address] Care Team Providers Care Crystal Gazer Name Role Phone Tona Williamson PA-C Primary Care Provi domingo Reshma Gordon APRN, CNP Primary Care Provider + Tacos Galindo PA-C Primary Care Provider Tacos Galindo PA-C Unavailable + Tacos Galindo PA-C Unavailable + Reason for Visit * Reason Onset Date Comments Refill Request 01/08/2012 Encounter Details Date Type Department Care Team (Late st Contact Info) Description 01/08/2012 MyC Migdalia [address] [phone] Tona Williamson PA-C [place] [address] Refill Request Social History Tobacco Use Types Packs/Day Years Used Date Smoking Tobacco: Never Smokeless Tobacco: Never Alcohol Use Standard Drinks/Week Comments No 0 (1 standard drink = 0.6 oz pur e alcohol) rarely Sex and Gender Information Value Date Recorded Sex Assigned at Female 09/20/2021 12:29 PM MEDICAL DOCTOR Gender Identity Female 09/20/2021 12:29 PM MEDICAL DOCTOR Sexual Orientation Straight 09/20/2021 12 :29 PM MEDICAL DOCTOR documented as of this encounter Miscellaneous Notes * Telephone Encounter - Asia Gray - 01/08/2012 10:25 AM CDTMessage from [facility]: Original authorizing provider: KELLY Oliveros would like a refill of the following medications: ALENdronate (FOSAMAX) 70 MG tablet [Tona Williamson PA-C] Preferred pharmacy: [facility] Comment: documented in this encounter Plan of Treatment Not on file documented as of this encounter Visit Diagnoses Diagnosis Unspecified vitamin D deficiency- Primary documented in this encounter Care Teams Crystal Gazer Relationship Specialty Start Date End Date Tona Williamson PA-C PCP - General Physician Commissioner Of Relocation Services 10/25/10 08/17/13 Reshma Gordon APRN CNP [address] [place] [address] PCP - General Nurse Practitioner - Family 08/18/13 10/18/17 Tacos Galindo PA-C [address] [place] [address] PCP - General Physician Commissioner Of Relocation Services - Medical 10/19/17 05/29/19 Tacos Galindo PA-C [address] [place] [address] PCP - Assigned PCP 10/21/17 12/10/18 Tacos Galindo PA-C [address] [place] [address] Assigned PCP 10/21/17 09/10/21 documented as of this encounter
--- OUTSIDE RECORDS SUMMARY | 2024-04-14 15:26 | XMS_ITS | Encounter Summary ---
Author Organization [facility] Address [address] [place] [address]. [place] [address] Care Team Providers Care Marketing Campaign Analyst Name Role Phone Reshma Gordon APRN TONE CABINET ASSEMBLER Primary Care Provider + Tacos Galindo PA-C Primary Care Provider Tacos Galindo PA-C Unavailable [phone] Tacos Galindo PA-C Unavailable [phone] Reason for Visit * Reason Onset Date Comments MyChart Communication 10/15/2016 Imm/Inj 10/15/2016 Influenza Encounter Details Date Type Department Care Team (Late st Contact Info) Description 10/15/2016 [facility] Radha Berg [address] [phone] Reshma Gordon APRN [address] [address] MyChart Communication; Imm/Inj (Influenza) Social History Tobacco Use Types Packs/Day Years Used Date Smoking Tobacco: Never Smokeless Tobacco: Never Alcohol Use Standard Drinks/Week Comments No 0 (1 standard drink = 0.6 oz pur e alcohol) rarely Sex and Gender Information Value Date Recorded Sex Assigned at Female 09/20/2021 12:29 PM DOCTOR OF OSTEOPATHY Gender Identity Female 09/20/2021 12:29 PM DOCTOR OF OSTEOPATHY Sexual Orientation Straight 09/20/2021 12 :29 PM DOCTOR OF OSTEOPATHY documented as of this encounter Miscellaneous Notes * Telephone Encounter - Jay Mayer RN - 10/16/2016 7:57 AM CST Sent patient mychart message as per below Made immunization request note in appointment Jay Mayer RN OR OF OSTEOPATHY documented in this encounter Plan of Treatment Not on file documented as of this encounter Visit Diagnoses Not on filedocumented in this encounter Care Teams Marketing Campaign Analyst Relationship Specialty Start Date End Date Reshma Gordon, BUSINESS RECORDS MANAGER TONE CABINET ASSEMBLER [address] [place], [place] [phone] PCP - General Nurse Practitioner - Family 08/18/13 10/18/17 Tacos Galindo PA-C [address] [place] [address] PCP - General Physician Parcel Post Delivery - Medical 10/19/17 05/29/19 Tacos Galindo PA-C [address] [place] [address] PCP - Assigned PCP 10/21/17 12/10/18 Tacos Galindo PA-C [address] [place] [address] Assigned PCP 10/21/17 09/10/21 documented as of this encounter
--- OUTSIDE RECORDS SUMMARY | 2024-04-14 15:26 | XMS_ITS | Encounter Summary ---
Author Organization [facility] Address [address] [place] [address]. [place] [address] Care Team Providers Care Nail Mill Worker Name Role Phone Reshma Gordon APRN PRECISION FILER HAND Primary Care Provider + Tacos Galindo PA-C Primary Care Provider Tacos Galindo PA-C Unavailable [phone] Tacos Galindo PA-C Unavailable [phone] Reason for Visit * Reason Onset Date Comments Appointment 05/17/2015 Fasting labs Encounter Details Date Type Department Care Team (Late st Contact Info) Description 05/17/2015 MyC Medical Advice [address] [phone] Reshma Gordon APRN [address] [address] Appointment (Fasting labs) Social History Tobacco Use Types Packs/Day Years Used Date Smoking Tobacco: Never Smokeless Tobacco: Never Alcohol Use Standard Drinks/Week Comments No 0 (1 standard drink = 0.6 oz pur e alcohol) rarely Sex and Gender Information Value Date Recorded Sex Assigned at Female 09/20/2021 12:29 PM CAPITAL EQUIPMENT SPECIALIST Gender Identity Female 09/20/2021 12:29 PM CAPITAL EQUIPMENT SPECIALIST Sexual Orientation Straight 09/20/2021 12 :29 PM CAPITAL EQUIPMENT SPECIALIST documented as of this encounter Miscellaneous Notes * Telephone Encounter - Magnolia Noyola RN - 05/17/2015 4:01 PM CDT I messaged pt as below. Rick Triage Nurse documented in this encounter Plan of Treatment Not on file documented as of this encounter Visit Diagnoses Not on filedocumented in this encounter Care Teams Nail Mill Worker Relationship Specialty Start Date End Date Reshma Gordon, PROPERTY CLAIMS ADJUSTER PRECISION FILER HAND [address] [place] [address] PCP - General Nurse Practitioner - Family 08/18/13 10/18/17 Tacos Galindo PA-C [address] [place] [address] PCP - General Physician Equipment Superintendent - Medical 10/19/17 05/29/19 Tacos Galindo PA-C [address] [place] [address] PCP - Assigned PCP 10/21/17 12/10/18 Tacos Galindo PA-C [address] [address] [place], [place] [id number] Assigned PCP 10/21/17 09/10/21 documented as of this encounter
== END 2024-04-14 08:24 | disposition home or self-care (01) ==
LOC: NFLDREF 15:23
PROVIDERS: PCP Family Medicine; Referring Provider Family Medicine; Visit Provider Family Medicine
DX: E78.5 Hyperlipidemia, unspecified (principal); I10 Essential (primary) hypertension; M85.80 Other specified disorders of bone density and structure, unspecified site
CPT/HCPCS: 80053; 80061; 82306

== ENCOUNTER 2024-09-10 04:32 | Emergency (ER) | payer OTHER, SELFPAY ==
[2024-09-10] VITALS (18 sets, daily range): BP systolic 129–181; BP diastolic 69–102; PULSE 68–98; RESP 16–18; TEMP 36.7; O2SAT 93–98; BMI 34.0
--- NOTE | 2024-09-10 04:54 | CRLHL7_ITS ---
For Patients: As a result of the Cures Act, medical imaging exams and procedure reports are released immediately into your electronic medical record. You may view this report before your referring provider. If you have questions, please contact your health care provider. INDICATION: Chest pain COMPARISON: None TECHNIQUE: PA and lateral views of the chest were acquired FINDINGS: TUBES AND LINES: None. HEART AND MEDIASTINUM: The heart size is normal. The mediastinal contour appears normal for patient age. LUNGS AND PLEURAL SPACES: The lungs appear normal.The pleural spaces are unremarkable. OSSEOUS STRUCTURES: Age-appropriate appearance. No acute focal finding. IMPRESSION: No evidence of active pulmonary disease. Dictated by Ke Perez MD @ 09/10/2024 5:15:27 AM (Electronically Signed)
--- NOTE | 2024-09-10 04:56 | ED_ITS ---
HPI - General Adult General Chief complaint: Chest Pain Stated complaint: chest pain,shortness of breath Time Seen by Provider: 09/10/24 04:42 Source: patient Mode of arrival: ambulatory Limitations: no limitations History of Present Illness HPI narrative: 69-year-old female nonsmoker with a history of modified hypertension and hyperlipidemia presents to the emergency department for evaluation of chest pain this started about 30 minutes prior to arrival. Pain is reproduced by palpation, probably lasted about 1 minute. Not exertional. Not accompanied by dizziness or shortness of breath or gastric reflux. No specific trauma or injury but does admit that she did a lot of vacuuming yesterday that may have exacerbated things. No personal prior history of coronary artery disease, heart failure or other cardiac issues. She had a cardiac stress test about 35 years ago that was normal. She does have a family history of heart disease but no premature coronary artery disease in the family. Nonsmoker. No history of bleeding or blood clotting disorders, not anticoagulated. Did not try any interventions at home prior to coming to the ED. I rash she is asymptomatic and only become symptomatic with palpation at this time. Past medical history notable for hypertension, hyperlipidemia and obesity. Home meds are amlodipine, low-dose aspirin, atorvastatin, lisinopril and triamterene/hydrochlorothiazide. Nonsmoker. Allergies to erythromycin and neomycin. ROS is notable for the chest symptoms as described above only, otherwise denies times 12 systems. Related Data Home Medications ?Medication ?Instructions ?Recorded ?Confirmed aspirin 81 mg tablet,delayed 81 mg PO DAILY 04/12/23 09/10/24 release cholecalciferol (vitamin D3) 25 25 mcg PO QDAY 04/23/23 09/10/24 mcg (1,000 unit) capsule calcium carbonate 500 mg PO BID 10/23/23 09/10/24 Previous Rx's ?Medication ?Instructions ?Recorded amlodipine 5 mg tablet 5 mg PO DAILY #90 tabs 04/15/24 atorvastatin 40 mg tablet 40 mg PO .Bedtime #90 tabs 04/15/24 lisinopril 40 mg tablet 40 mg PO DAILY #90 tabs 04/15/24 triamterene 37.5 0.5 tab PO DAILY #90 tabs 04/15/24 mg-hydrochlorothiazide 25 mg tablet Allergies Allergy/AdvReac Type Severity Reaction Status Date / Time erythromycin base Allergy Intermediate hives, Verified 09/10/24 04:43 breathing issues neomycin Allergy Intermediate Hives Verified 09/10/24 04:43 [facility] Medical History Abnormal x-ray ?R93.89 - Abnormal findings on diagnostic imaging of other specified body structures (ICD-10) Obesity (BMI 30.0-34.9) ?E66.9 - Obesity, unspecified (ICD-10) History of herpes zoster ?Z86.19 - Personal history of other infectious and parasitic diseases (ICD- 10) Encounter for counseling regarding advance directives (12/17/14) ?Z71.89 - Other specified counseling (ICD-10) Benign paroxysmal positional vertigo ?H81.10 - Benign paroxysmal vertigo, unspecified ear (ICD-10) White coat syndrome with diagnosis of hypertension ?I10 - Essential (primary) hypertension (ICD-10) Osteopenia (07/2019) ?M85.80 - Other specified disorders of bone density and structure, unspecifi ed site (ICD-10) Lumbar back pain ?M54.50 - Low back pain, unspecified (ICD-10) Hypertension ?I10 - Essential (primary) hypertension (ICD-10) Hyperlipidemia ?E78.5 - Hyperlipidemia, unspecified (ICD-10) Surgical History History of ankle surgery ?Z98.890 - Other specified postprocedural states (ICD-10) History of third molar tooth extraction (2017) ?K08.409 - Partial loss of teeth, unspecified cause, unspecified class (ICD- 10) History of repair of patent ductus arteriosus (1958) ?Z87.74 - Personal history of (corrected) congenital malformations of heart and circulatory system (ICD-10) History of section (1982) ?Z98.891 - History of uterine scar from previous surgery (ICD-10) Family History Mother Breast cancer, Onset Age: 85 Father Stroke, Onset Age: 80 Paternal Grandfather Myocardial infarction, Onset Age: 85 Social History Narrative: , 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, 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 does not drink alcohol exercises 3-4 times per week: Walking 6000 steps on average nonsmoker What is your current living situation?: I presently have a place to live Problems where you live: pests, such as bugs, ants, or mice Problems where you live details: but under control In the past 12 months, utilities in danger of being shut off: no In the past 12 mos, have been you worried that your food would run out before you had money to buy more?: never true In the past 12 mos, the food you bought just didn't last and you didn't have money to buy more?: never true Smoking Status: Never smoker How often do you have a drink containing alcohol: never AUDIT-C Alcohol total score: 0 Non-prescribed substance use: denies use How often does anyone, including family, friends and others, physically hurt you : never How often does anyone, including family, friends and others, insult or talk down to you: never How often does anyone, including family, friends and others, threaten you with harm: never How often does anyone, including family, friends and others, scream or curse at you: never Health Related Social Needs: Inadequate housing (Z59.1) Exam Const: Vital Signs, click to edit/add: Vital Signs - 24 hr 09/10/24 04:39 09/10/24 04:44 09/10/24 04:45 Temperature 98.1 F Pulse Rate 87 87 Pulse Rate [Pulse Oximeter] 98 Respiratory Rate 18 Blood Pressure 153/102 H Blood Pressure [Ri ght Upper Arm] 181/100 H Pulse Oximetry 97 98 98 Oxygen Delivery Me thod Room Air 09/10/24 05:00 09/10/24 05:02 09/10/24 05:22 Temperature Pulse Rate 78 83 77 Pulse Rate [Pulse Oximeter] Respiratory Rate 16 Blood Pressure 140/79 H 130/69 Blood Pressure [Ri ght Upper Arm] Pulse Oximetry 97 97 98 Oxygen Delivery Me thod 09/10/24 05:30 09/10/24 05:42 09/10/24 05:45 Temperature Pulse Rate 73 72 71 Pulse Rate [Pulse Oximeter] Respiratory Rate Blood Pressure 129/77 Blood Pressure [Ri ght Upper Arm] Pulse Oximetry 95 96 97 Oxygen Delivery Me thod 09/10/24 06:00 09/10/24 06:02 09/10/24 06:15 Temperature Pulse Rate 71 68 71 Pulse Rate [Pulse Oximeter] Respiratory Rate 16 Blood Pressure 136/75 Blood Pressure [Ri ght Upper Arm] Pulse Oximetry 97 97 95 Oxygen Delivery Me thod 09/10/24 06:22 09/10/24 06:30 09/10/24 06:42 Temperature Pulse Rate 69 69 73 Pulse Rate [Pulse Oximeter] Respiratory Rate Blood Pressure 136/77 137/80 Blood Pressure [Ri ght Upper Arm] Pulse Oximetry 97 93 94 Oxygen Delivery Me thod 09/10/24 06:45 09/10/24 07:00 09/10/24 07:02 Temperature Pulse Rate 68 70 77 Pulse Rate [Pulse Oximeter] Respiratory Rate Blood Pressure 141/79 H Blood Pressure [Ri ght Upper Arm] Pulse Oximetry 96 95 94 Oxygen Delivery Me thod Documenting provider has reviewed patient's vital signs: yes Common normals: no apparent distress and alert General appearance: cooperative, comfortable and well kempt HENMT: Common normals: normocephalic Head and scalp: normocephalic Mouth: oral and palatal mucosa normal Throat: posterior oropharynx normal Eye: Common normals: conjunctivae normal General eye: normal appearance of both eyes Conjunctiva: conjunctiva(e) normal Neck & C-Spine: Common normals: full ROM and no lymphadenopathy Chest: Common normals: inspection of chest normal Other: Palpation of chest along sternum does reproduce described symptoms. Resp: Common normals: normal respiratory effort, no use of accessory muscles and clear to auscultation bilaterally Effort & inspection: able to speak in complete sentences Auscultation: clear to auscultation bilaterally Cardio: Common normals: regular rate, regular rhythm, S1 normal heart sound, S2 normal heart sound and no murmurs Rate: regular rate Rhythm: regular rhythm Heart sounds: S1 normal and S2 normal GI: Common normals: Normal to inspection, nondistended, normoactive bowel sounds present, soft to palpation, non-tender, no hepatosplenomegaly and no masses Palpation: soft and no hepatosplenomegaly Extremity: Common normals: normal to inspection, normal capillary refill and no pedal edema Neuro: Sensorium/orientation: alert Speech: speech normal Motor exam: no movement abnormalities noted Psych: Appearance: well kempt Attitude: engaged Activity/motor behavior: appropriate eye contact Mood and affect: euthymic mood Insight: insight good Judgement: judgment good Skin: Common normals: no rashes or lesions noted General skin exam: no rash es or lesions noted Course Course ED Course: 69-year-old female with a few small cardiac risk factors presenting to the ED with episode of chest pain with palpation, not on exertion. No prodromal symptoms. Initial exam is quite reassuring. Will obtain EKG, chest x-ray, typical labs including troponin and repeat troponin in 2 hours with repeat EKG. No interval treatments as patient does regularly take aspirin. Await findings and clinical response. Certainly could have been brought on by the vacuuming that she is describing but cannot exclude coronary artery disease, arrhythmia, congestive heart failure, musculoskeletal etiology, pleurisy, amongst others. Reevaluation(s) Time of Reevaluation #1: 07:27 Reevaluation #1: Counseled patient on lab findings, imaging findings. Remains only symptomatic to palpation, no other evolution of findings. No signs of dangerous condition, discussed several potentially benign etiologies such as musculoskeletal etiology, cartilage inflammation, amongst others. Suspect pulled muscle. Counseled patient on use of Tylenol and ibuprofen but also watchful waiting since she does have a few risk factors for heart disease. If she has any further episodes, she should follow up with her primary care provider to arrange a stress test. Any severe symptoms would warrant ED presentation. She will continue all of her home medications as prescribed. No limitations of activities. Vital Signs Vital signs: Initial Vital Signs Respiratory Effort Normal, Spontaneous, Non-Labored 09/10/24 04:38 Respiratory Depth Normal 09/10/24 04:38 Respiratory Pattern Normal 09/10/24 04:38 Vital Signs Temperature 98.1 F 09/10/24 04:39 Pulse Rate 98 09/10/24 04:39 Respiratory Rate 18 09/10/24 04:39 Blood Pressure 181/100 H 09/10/24 04:39 Pulse Oximetry 97 09/10/24 04:39 Oxygen Delivery Method Room Air 09/10/24 04:39 Temperature 98.1 F 09/10/24 04:39 Pulse Rate 77 09/10/24 07:02 Respiratory Rate 16 09/10/24 06:02 Blood Pressure 141/79 H 09/10/24 07:02 Pulse Oximetry 94 09/10/24 07:02 Oxygen Delivery Method Room Air 09/10/24 04:39 Medical Decision Making Lab Data Lab results reviewed: Yes I reviewed the patient's lab results Lab results narrative: Labs all reassuring including 2 hour repeat troponin. Patient remains asymp tomatic. Labs: Lab Results 09/10/24 09/10/24 Range/Units 05:05 05:10 WBC 5.31 (4.50-11.00) K/uL RBC 5.09 (4.00-5.20) m/uL Hgb 15.1 (12.0-16.0) gm/dL Hct 43.9 (33.0-51.0) % MCV 86 (80-100) fL MCH 30 (26-34) pg MCHC 34 (32-36) gm/dL RDW Coeff of Justin 13.0 (11.5-15.5) % Plt Count 256 (140-440) K/uL Neut % (Auto) 41.9 L (42.0-72.0) % Lymph % (Auto) 46.5 H (20-44) % Pitt % (Auto) 8.7 (0.0-11.0) % Eos % (Auto) 2.1 (0.0-7.0) % Baso % (Auto) 0.8 (0.0-3.0) % Neut # (Auto) 2.20 (1.7-7.0) K/uL Lymph # (Auto) 2.50 (0.90-2.90) K/uL Pitt # (Auto) 0.50 (0.00-0.90) K/UL Eos # (Auto) 0.11 (0.00-0.50) K/uL Baso # (Auto) 0.04 (0.00-0.30) K/uL Abs Immat Gran (auto) 0.00 (0.00-0.30) K/uL Imm/Tot Granulo (auto) 0.0 % Sodium 137 (135-149) mmol/L Potassium 3.4 L (3.6-5.1) mmol/L Chloride 105 (96-114) mmol/L Carbon Dioxide 25 (20-32) mmol/L Anion Gap 7 (7-15) mEq/L BUN 15 (7-30) mg/dL Creatinine 0.5 (0.5-1.5) mg/dL Estimated Creat Clear 39.50 Estimated GFR 101 ml/min Glucose 101 (60-115) mg/dL Calcium 9.3 (8.4-10.6) mg/dL Troponin I < 0.01 L (0.01-0.04) ng/mL C-Reactive Protein < 0.5 L (0.5-1.0) mg/dL NT-Pro-B Natriuret Pep 41 pg/mL POC Troponin I 0.01 (0.01-0.04) ng/ml Imaging Data Chest x-ray: Attestation: I have reviewed the pertinent imaging results. My impression: Normal chest x-ray. No cardiomegaly, effusions or other abnormality. Radiologist's impression: IMPRESSION: No evidence of active pulmonary disease. Dictated by Ke Perez MD @ 09/10/2024 5:15:27 AM ECG Data Attestation: I personally reviewed and interpreted this ECG as follows: Prior ECG tracings: not available for review Interpretation: Sinus rhythm, rate of 92. Slightly leftward axis but normal intervals. A few PVCs are present. No significant ST or T-wave abnormalities otherwise. Normal EKG. Discharge Plan Discharge Clinical Impression: Chest pain, non-cardiac Patient Disposition: Home w/ Parent or Adult Condition: Stable Instructions: Chest Wall Pain (ED) Additional Instructions: As we discussed, your labs are reassuring today. There are no signs of inflammatory condition, infection, heart failure, heart attack, abnormal heart rhythm or other dangerous condition. This is great news. Pain in this area can be from a number of benign conditions besides the things that we test for in the emergency department. It can be from irritation of the esophagus from gastric reflux, a pulled muscle in the chest wall, inflammation of the lining of the lung, irritation of the cartilage in the sternum, many causes. There were no signs of any dangerous etiology today. At this time, I recommend you continue taking your medications including your aspirin as prescribed. If you have any further episodes, I would recommend that you make a follow-up appoint with her primary care provider to discuss setting up a cardiac stress test. It is okay to use Tylenol and/or ibuprofen to help with the pain. Return to the emergency department if you have severe shortness of breath, severe weakness, severe exertional pain or other alarming symptoms. You may return to unrestricted work and athletic activities. Activity Level: No Restrictions Discharge Diet: Regular Prescriptions: No Action aspirin 81 mg tablet,delayed release (DR/EC) 81 mg PO DAILY calcium carbonate 500 mg calcium (1,250 mg) tablet 500 mg PO BID lisinopril 40 mg tablet 40 mg PO DAILY Qty: 90 3RF atorvastatin 40 mg tablet 40 mg PO .Bedtime Qty: 90 3RF amlodipine 5 mg tablet 5 mg PO DAILY Qty: 90 3RF triamterene-hydrochlorothiazid 37.5-25 mg tablet 0.5 tab PO DAILY Qty: 90 3RF cholecalciferol (vitamin D3) 25 mcg (1,000 unit) capsule 25 mcg PO QDAY Follow Up/Referrals: Manuela Salter MD [Primary Care Provider] - Stand Alone Forms: [facility] Info Instructions
--- OUTSIDE RECORDS SUMMARY | 2024-09-10 05:00 | XMS_ITS | Encounter Summary ---
Author Organization [place] Address [address] [place] [address]. [place] [address] Care Team Providers Care Drafter Automotive Design Name Role Phone Reshma Gordon APRN TIGER MACHINE OPERATOR Primary Care Provider + Tacos Galindo PA-C Primary Care Provider Tacos Galindo PA-C Unavailable [phone] Tacos Galindo PA-C Unavailable [phone] Reason for Visit * Reason Onset Date Comments MyChart Communication 10/15/2016 Imm/Inj 10/15/2016 Influenza Encounter Details Date Type Department Care Team (Late st Contact Info) Description 10/15/2016 [facility] Radha Berg [address] [phone] Reshma Gordon APRN [address] [address] MyChart Communication; Imm/Inj (Influenza) Social History Tobacco Use Types Packs/Day Years Used Date Smoking Tobacco: Never Smokeless Tobacco: Never Alcohol Use Standard Drinks/Week Comments No 0 (1 standard drink = 0.6 oz pur e alcohol) rarely Comments No Sex and Gender Information Value Date Recorded Sex Assigned at Female 09/20/2021 12:29 PM BLEACHING MACHINE OPERATOR Legal Sex Female 3:20 AM BLEACHING MACHINE OPERATOR Gender Identity Female 09/20/2021 12:29 PM BLEACHING MACHINE OPERATOR Sexual Orientation Straight 09/20/2021 12 :29 PM BLEACHING MACHINE OPERATOR documented as of this encounter Miscellaneous Notes * Telephone Encounter - Jay Mayer RN - 10/16/2016 7:57 AM CST Sent patient Joognuhart message as per below Made immunization request note in appointment Jay Mayer RN CHING MACHINE OPERATOR documented in this encounter Plan of Treatment Not on file documented as of this encounter Visit Diagnoses Not on filedocumented in this encounter Care Teams Drafter Automotive Design Relationship Specialty Start Date End Date Reshma Gordon, SCIENCE INTERN TIGER MACHINE OPERATOR [address] [place], [place] [address] PCP - General Nurse Practitioner - Family 08/18/13 10/18/17 Tacos Galindo PA-C [address] [place] [address] PCP - General Physician Recruiting Coordinator - Medical 10/19/17 05/29/19 Tacos Galindo PA-C [address] [place] [address] PCP - Assigned PCP 10/21/17 12/10/18 Tacos Galindo PA-C [address] [place] [address] Assigned PCP 10/21/17 09/10/21 documented as of this encounter
--- OUTSIDE RECORDS SUMMARY | 2024-09-10 05:00 | XMS_ITS | Encounter Summary ---
Author Organization [place] Address [address] [place] [address]. [place] [address] Care Team Providers Care Melter Supervisor Electric Arc Furnace Name Role Phone Tona Williamson PA-C Primary Care Provi domingo Reshma Gordon APRN, CNP Primary Care Provider + Tacos Galindo PA-C Primary Care Provider Tacos Galindo PA-C Unavailable [phone] Tacos Galindo PA-C Unavailable [phone] Reason for Visit * Reason Onset Date Comments Refill Request 01/08/2012 Encounter Details Date Type Department Care Team (Late st Contact Info) Description 01/08/2012 [facility] [address] [phone] Tona Williamson PA-C [place] [address] Refill Request Social History Tobacco Use Types Packs/Day Years Used Date Smoking Tobacco: Never Smokeless Tobacco: Never Alcohol Use Standard Drinks/Week Comments No 0 (1 standard drink = 0.6 oz pur e alcohol) rarely Comments No Sex and Gender Information Value Date Recorded Sex Assigned at Female 09/20/2021 12:29 PM RAT BREEDER Legal Sex Female 3:20 AM RAT BREEDER Gender Identity Female 09/20/2021 12:29 PM RAT BREEDER Sexual Orientation Straight 09/20/2021 12 :29 PM RAT BREEDER documented as of this encounter Miscellaneous Notes * Telephone Encounter - Asia Gray - 01/08/2012 10:25 AM CDTMessage from [facility]: Original authorizing provider: KELLY Oliveros would like a refill of the following medications: ALENdronate (FOSAMAX) 70 MG tablet [Tona Williamson PA-C] Preferred pharmacy: [facility] Comment: documented in this encounter Plan of Treatment Not on file documented as of this encounter Visit Diagnoses Diagnosis Unspecified vitamin D deficiency- Primary documented in this encounter Care Teams Melter Supervisor Electric Arc Furnace Relationship Specialty Start Date End Date Tona Williamson PA-C PCP - General Physician Automotive Parts Salesperson 10/25/10 08/17/13 Reshma Gordon APRN CNP [address] [place] [address] PCP - General Nurse Practitioner - Family 08/18/13 10/18/17 Tacos Galindo PA-C [address] [place] [address] PCP - General Physician Automotive Parts Salesperson - Medical 10/19/17 05/29/19 Tacos Galindo PA-C [id number] [place], [place] [id number] PCP - Assigned PCP 10/21/17 12/10/18 Tacos Galindo PA-C [address] [place], [place] [id number] Assigned PCP 10/21/17 09/10/21 documented as of this encounter
--- OUTSIDE RECORDS SUMMARY | 2024-09-10 05:00 | XMS_ITS | Encounter Summary ---
Author Organization [facility] Address [address] [place] [address]. [place] [address] Care Team Providers Care Cooler Supervisor Name Role Phone Tona Williamson PA-C Primary Care Provi domingo Reshma Gordon APRN, CNP Primary Care Provider + Tacos Galindo PA-C Primary Care Provider Tacos Galindo PA-C Unavailable [phone] Tacos Galindo PA-C Unavailable [phone] Reason for Visit * Reason Onset Date Comments Refill Request 12/12/2012 Encounter Details Date Type Department Care Team (Late st Contact Info) Description 12/12/2012 [facility] [address] [phone] Tona Williamson PA-C [place] [address] Refill Request Social History Tobacco Use Types Packs/Day Years Used Date Smoking Tobacco: Never Smokeless Tobacco: Never Alcohol Use Standard Drinks/Week Comments No 0 (1 standard drink = 0.6 oz pur e alcohol) rarely Comments No Sex and Gender Information Value Date Recorded Sex Assigned at Female 09/20/2021 12:29 PM SUPERINTENDENT SANITATION Legal Sex Female 3:20 AM SUPERINTENDENT SANITATION Gender Identity Female 09/20/2021 12:29 PM SUPERINTENDENT SANITATION Sexual Orientation Straight 09/20/2021 12 :29 PM SUPERINTENDENT SANITATION documented as of this encounter Plan of Treatment Not on file documented as of this encounter Visit Diagnoses Diagnosis Hypercholesterolemia- Primary Pure hypercholesterolemia documented in this encounter Care Teams Cooler Supervisor Relationship Specialty Start Date End Date Tona Williamson PA-C PCP - General Physician Mangle Tender 10/25/10 08/17/13 Reshma Gordon, PEÑA AIRCRAFT POWER PLANT ASSEMBLER [address] [place] [address] PCP - General Nurse Practitioner - Family 08/18/13 10/18/17 Tacos Galindo PA-C [address] [place] [address] PCP - General Physician Mangle Tender - Medical 10/19/17 05/29/19 Tacos Galindo PA-C [address] [place] [address] PCP - Assigned PCP 10/21/17 12/10/18 Tacos Galindo PA-C [address] [place] [address] Assigned PCP 10/21/17 09/10/21 documented as of this encounter
--- OUTSIDE RECORDS SUMMARY | 2024-09-10 05:00 | XMS_ITS | Encounter Summary ---
Author Organization [place] Address [facility] [place] [address] Care Team Providers Care Business Lawyer Name Role Phone Tacos Galindo PA-C Unavailable [phone] Reason for Visit * Reason Onset Date Comments Panel Management 09/02/2019 Encounter Details Date Type Department Care Team (Late st Contact Info) Description 09/02/2019 [facility] [address], [address] [place] [address] Tacos Galindo PA-C [address] [place] [address] Panel Management Social History Tobacco Use Types Packs/Day Years Used Date Smoking Tobacco: Never Smokeless Tobacco: Never Alcohol Use Standard Drinks/Week Comments No 0 (1 standard drink = 0.6 oz pur e alcohol) rarely PHQ-2 Answer Date Recorded PHQ-2 Score 0 09/05/2018 Comments No Sex and Gender Information Value Date Recorded Sex Assigned at Female 09/20/2021 12:29 PM BUSINESS OFFICE MANAGER Legal Sex Female 3:20 AM BUSINESS OFFICE MANAGER Gender Identity Female 09/20/2021 12:29 PM BUSINESS OFFICE MANAGER Sexual Orientation Straight 09/20/2021 12 :29 PM BUSINESS OFFICE MANAGER documented as of this encounter Miscellaneous Notes * Telephone Encounter - Yara Burleson, SEMICONDUCTOR WAFERS TESTER - 09/09/2019 1:39 PM CST [facility]. Yara Burleson MA NESS OFFICE MANAGER * Telephone Encounter - Yara Burleson CMA [...] needs referral/order: FIT Type of outreach: Sent EverConnect message. Questions for provider review: None Yara Burleson MA Chart routed to Care Team . NESS OFFICE MANAGER documented in this encounter Plan of Treatment Not on file documented as of this encounter Visit Diagnoses Not on filedocumented in this encounter Additional Health Concerns Assessment Noted Time PHQ-9 Depression Total Score: 3 09/05/20 18 12:23 PM BUSINESS OFFICE MANAGER documented as of this encounter Care Teams Business Lawyer Relationship Specialty Start Date End Date Tacos Galindo PA-C [address] [place] [address] Assigned PCP 10/21/17 09/10/21 documented as of this encounter
--- OUTSIDE RECORDS SUMMARY | 2024-09-10 05:00 | XMS_ITS | Encounter Summary ---
Author Organization [facility] Address [address] [place] [address]. [place] [address] Care Team Providers Care Stone Trimmer Name Role Phone Reshma Gordon APRN LIQUOR TESTER Primary Care Provider + Tacos Galindo PA-C Primary Care Provider Tacos Galindo PA-C Unavailable + Tacos Galindo PA-C Unavailable +[phone] Encounter Details Date Type Department Care Team (Late st Contact Info) Description 05/10/2015 [facility] Medical Advice [address] [address] Janelle Stovall CMA Social History Tobacco Use Types Packs/Day Years Used Date Smoking Tobacco: Never Smokeless Tobacco: Never Alcohol Use Standard Drinks/Week Comments No 0 (1 standard drink = 0.6 oz pur e alcohol) rarely Comments No Sex and Gender Information Value Date Recorded Sex Assigned at Female 09/20/2021 12:29 PM ROUND UP RING HAND Legal Sex Female 3:20 AM ROUND UP RING HAND Gender Identity Female 09/20/2021 12:29 PM ROUND UP RING HAND Sexual Orientation Straight 09/20/2021 12 :29 PM ROUND UP RING HAND documented as of this encounter Plan of Treatment Not on file documented as of this encounter Visit Diagnoses Not on filedocumented in this encounter Care Teams Stone Trimmer Relationship Specialty Start Date End Date Reshma Gordon APRN LIQUOR TESTER [address] [place] [address] [address] [place] [address] PCP - General Nurse Practitioner - Family 08/18/13 10/18/17 Tacos Galindo PA-C [address] [facility] [address] [place] [address] PCP - General Physician Stemhole Borer - Medical 10/19/17 05/29/19 Tacos Galindo PA-C [address] [place] [address] PCP - Assigned PCP 10/21/17 12/10/18 Tacos Galindo PA-C 88850 [place] [address]995 Assigned PCP 10/21/17 09/10/21 documented as of this encounter
--- OUTSIDE RECORDS SUMMARY | 2024-09-10 05:00 | XMS_ITS | Encounter Summary ---
Author Organization [facility] Address [address] [place] [address]. [place] [address] Care Team Providers Care Corporate Sales Manager Name Role Phone Reshma Gordon APRN DIRECTOR RADIO Primary Care Provider + Tacos Galindo PA-C Primary Care Provider Tacos Galindo PA-C Unavailable + Tacos Galindo PA-C Unavailable +[phone] Reason for Visit * Reason Onset Date Comments Medication Follow-up 05/28/2015 Do a med re c Encounter Details Date Type Department Care Team (Late st Contact Info) Description 05/28/2015 Evan Medical Advice M [address] [phone] Reshma Gordon APRN [address] [id number] Medication Follow-up (Do a med rec) Social History Tobacco Use Types Packs/Day Years Used Date Smoking Tobacco: Never Smokeless Tobacco: Never Alcohol Use Standard Drinks/Week Comments No 0 (1 standard drink = 0.6 oz pur e alcohol) rarely Comments No Sex and Gender Information Value Date Recorded Sex Assigned at Female 09/20/2021 12:29 PM RECORD TESTER Legal Sex Female 3:20 AM RECORD TESTER Gender Identity Female 09/20/2021 12:29 PM RECORD TESTER Sexual Orientation Straight 09/20/2021 12 :29 PM RECORD TESTER documented as of this encounter Miscellaneous Notes [...] cause documented in this encounter Care Teams Corporate Sales Manager Relationship Specialty Start Date End Date Reshma Gordon, PEÑA DIRECTOR RADIO [address] [place] [place] [address] PCP - General Nurse Practitioner - Family 08/18/13 10/18/17 Tacos Galindo PA-C [address] [place] [place] [address] PCP - General Physician Option Trader - Medical 10/19/17 05/29/19 Tacos Galindo PA-C [address] [place], [place] [id number] PCP - Assigned PCP 10/21/17 12/10/18 Tacos Galindo PA-C [address] [place], [place] [id number] Assigned PCP 10/21/17 09/10/21 documented as of this encounter
--- OUTSIDE RECORDS SUMMARY | 2024-09-10 05:00 | XMS_ITS | Encounter Summary ---
Author Organization [facility] Address [facility] [place] [address] Care Team Providers Care Collections Officer Name Role Phone Tacos Galindo PA-C Primary Care Provider Tacos Galindo PA-C Unavailable + [phone] Tacos Galindo PA-C Unavailable + [phone] Encounter Details Date Type Department Care Team (Late st Contact Info) Description 12/19/2017 [facility] [address], [address] [place] [address] Tacos Galindo PA-C [address] [place] [address] Hyperlipidemia LDL goal <130 Social History Tobacco Use Types Packs/Day Years Used Date Smoking Tobacco: Never Smokeless Tobacco: Never Alcohol Use Standard Drinks/Week Comments No 0 (1 standard drink = 0.6 oz pur e alcohol) rarely Comments No Sex and Gender Information Value Date Recorded Sex Assigned at Female 09/20/2021 12:29 PM HAND SEWER SHOES Legal Sex Female 3:20 AM HAND SEWER SHOES Gender Identity Female 09/20/2021 12:29 PM HAND SEWER SHOES Sexual Orientation Straight 09/20/2021 12 :29 PM HAND SEWER SHOES documented as of this encounter Miscellaneous Notes * Telephone Encounter - Janette Saavedra RN - 12/19/2017 4:17 PM CDT Replied to the Pt. See below. Sent in 90 day supply. Janette Saavedra, RN -- [facility] documented in this encounter Plan of Treatment Not on file documented as of this encounter Visit Diagnoses Diagnosis Hyperlipidemia LDL goal <130 Other and unspecified hyperlipidemia documented in this encounter Additional Health Concerns Assessment Noted Time PHQ-9 Depression Total Score: 3 08/06/20 17 10:09 AM CDT documented as of this encounter Care Teams Collections Officer Relationship Specialty Start Date End Date Tacos Galindo PA-C PCP - General Physician Administrative Support Technician - Medical 10/19/17 05/29/19 Tacos Galindo PA-C [address] [place] [address] PCP - Assigned PCP 10/21/17 12/10/18 Tacos Galindo PA-C 95251 [place] QIU [id number] Assigned PCP 10/21/17 09/10/21 documented as of this encounter
--- OUTSIDE RECORDS SUMMARY | 2024-09-10 05:00 | XMS_ITS | Encounter Summary ---
Author Organization [facility] Address [address] [place] [address]. [place] [address] Care Team Providers Care Law Examiner Name Role Phone Reshma Gordon APRN GRADER MARKER Primary Care Provider + Tacos Galindo PA-C Primary Care Provider Tacos Galindo PA-C Unavailable +[phone] Tacos Galindo PA-C Unavailable +[phone] Reason for Visit * Reason Onset Date Comments Refill Request 06/17/2014 Encounter Details Date Type Department Care Team (Late st Contact Info) Description 06/17/2014 Evan Berg [address] [address] Reshma Gordon APRN [address] [address] Refill Request Social History Tobacco Use Types Packs/Day Years Used Date Smoking Tobacco: Never Smokeless Tobacco: Never Alcohol Use Standard Drinks/Week Comments No 0 (1 standard drink = 0.6 oz pur e alcohol) rarely Comments No Sex and Gender Information Value Date Recorded Sex Assigned at Female 09/20/2021 12:29 PM STARCHER AND TENTER RANGE FEEDER Legal Sex Female 3:20 AM STARCHER AND TENTER RANGE FEEDER Gender Identity Female 09/20/2021 12:29 PM STARCHER AND TENTER RANGE FEEDER Sexual Orientation Straight 09/20/2021 12 :29 PM STARCHER AND TENTER RANGE FEEDER documented as of this encounter Miscellaneous Notes * Telephone Encounter - Magnolia Noyola RN - 06/17/2014 9:05 AM CDT We gave her a year supply in April. I called in a verbal to the pharmacy, they were just using santo old rx number. It is now ready for her to case picker, pt notified as below. Omid Cabrera Nurse * Telephone Encounter - Magnolia Noyola RN - 06/17/2014 9:04 AM [facility]: Original authorizing provider: Reshma Gordon NP, SCALE AGENT Nadia Appiah would like a refill of the following medications: simvastatin (ZOCOR) 40 MG tablet [Reshma Gordon NP, SCALE AGENT] Preferred pharmacy: [id number] [place] [address] Comment: Good morning - I see that [...] hyperlipidemia documented in this encounter Care Teams Law Examiner Relationship Specialty Start Date End Date Reshma Gordon APRN CNP [address] [place] [address] PCP - General Nurse Practitioner - Family 08/18/13 10/18/17 Tacos Galindo PA-C [address] [place] [place] [address] PCP - General Physician Systems Administration Analyst - Medical 10/19/17 05/29/19 Tacos Galindo PA-C [address] [place] [address] PCP - Assigned PCP 10/21/17 12/10/18 Tacos Galindo PA-C 493[address] [place] [address] Assigned PCP 10/21/17 09/10/21 documented as of this encounter
--- OUTSIDE RECORDS SUMMARY | 2024-09-10 05:00 | XMS_ITS | Encounter Summary ---
Author Organization [facility] Address [address] [place] [address]. [place] [address] Care Team Providers Care Color Making Supervisor Name Role Phone Reshma Gordon APRN COIL FINISHER Primary Care Provider + Tacos Galindo PA-C Primary Care Provider Tacos Galindo PA-C Unavailable + Tacos Galindo PA-C Unavailable +[phone] Reason for Visit * Reason Onset Date Comments Refill Request 08/29/2013 Encounter Details Date Type Department Care Team (Late st Contact Info) Description 08/29/2013 MyC Migdalia Berg [address] [address] Reshma Gordon APRN [address] [address] Refill Request Social History Tobacco Use Types Packs/Day Years Used Date Smoking Tobacco: Never Smokeless Tobacco: Never Alcohol Use Standard Drinks/Week Comments No 0 (1 standard drink = 0.6 oz pur e alcohol) rarely Comments No Sex and Gender Information Value Date Recorded Sex Assigned at Female 09/20/2021 12:29 PM CORRECTIONAL OFFICER CHIEF Legal Sex Female 3:20 AM CORRECTIONAL OFFICER CHIEF Gender Identity Female 09/20/2021 12:29 PM CORRECTIONAL OFFICER CHIEF Sexual Orientation Straight 09/20/2021 12 :29 PM CORRECTIONAL OFFICER CHIEF documented as of this encounter Miscellaneous Notes * Telephone Encounter - Maura Stafford - 09/01/2013 12:19 PM CST Pharmacy was called- they said they didn't have the refills on file. I have resent the RX for #90x2. Maura Stafford RN ECTIONAL OFFICER CHIEF * Telephone Encounter - Nydia Maura Robles - 09/01/2013 12:16 PM CSTMessage from MyChart: From: NADIA APPIAH Sent: SunSep 01, 2013 10:22 AM To: Rd Triage Pod A Subject: RE: Medication Renewal Request - URGENT Hi again I went to pickup driver my RX at [facility] on Sunday - [...] AmLODIPine 2.5 mg at the [facility], [facility] as soon aspossible. I am leaving town [...] From: Maura Berg Sent: 08/29/2013 11:35 AM CORRECTIONAL OFFICER CHIEF To: Nadia Appiah Subject: RE: Medication Renewal Request Your medication has been sent to the pharmacy. Maura Stafford RN ----- Message ----- From: NADIA APPIAH Sent: 08/29/2013 9:40 AM CORRECTIONAL OFFICER CHIEF To: Reshma Gordon NP, LABORATORY SECRETARY Subject: Medication Renewal Request Original authorizing provider: Reshma Gordon NP, LABORATORY SECRETARY Nadia Appiah would like a refill of the following medications: amLODIPine (NORVASC) 2.5 MG tablet [Reshma M Gordon, LABORATORY SECRETARY, LABORATORY SECRETARY] Preferred pharmacy: [id number] - [place], [place] - [address] [facility] Comment: Hi [facility] says that there are no refills available on my prescription for Amlodipine, although I'm pretty sure that Jenna renewed the prescription during my May visit. Could someone please call [facility] to make sure that this prescription can be refilled this weekend?I only have a few tablets left. Thanks! ECTIONAL OFFICER CHIEF documented in this encounter Plan of Treatment Not on file documented as of this encounter Visit Diagnoses Diagnosis HTN, goal below 140/90- Primary Unspecified essential hypertension documented in this encounter Care Teams Color Making Supervisor Relationship Specialty Start Date End Date Reshma Gordon, PEÑA COIL FINISHER [address] [place] [address] PCP - General Nurse Practitioner - Family 08/18/13 10/18/17 Tacos Galindo PA-C [address] [place] [place] [address] PCP - General Physician Loan Processing Supervisor - Medical 10/19/17 05/29/19 Tacos Galindo PA-C [address] [place], [place] [id number] PCP - Assigned PCP 10/21/17 12/10/18 Tacos Galindo PA-C [address] [place], [place] [id number] Assigned PCP 10/21/17 09/10/21 documented as of this encounter
--- OUTSIDE RECORDS SUMMARY | 2024-09-10 05:00 | XMS_ITS | Encounter Summary ---
Author Organization [facility] Address [address] [place] [address]. [place] [address] Care Team Providers Care Overhead Garage Door Hanger Name Role Phone Tacos Galindo PA-C Primary Care Provider Tacos Galindo PA-C Unavailable + [phone] Tacos Galindo PA-C Unavailable + [phone] Encounter Details Date Type Department Care Team (Late st Contact Info) Description 10/25/2017 [facility] Medical Advice [address], [address] [place] [address] Tacos Galindo PA-C [address] [place], [place] [phone] Social History Tobacco Use Types Packs/Day Years Used Date Smoking Tobacco: Never Smokeless Tobacco: Never Alcohol Use Standard Drinks/Week Comments No 0 (1 standard drink = 0.6 oz pur e alcohol) rarely Comments No Sex and Gender Information Value Date Recorded Sex Assigned at Female 09/20/2021 12:29 PM AIRPLANE MECHANIC APPRENTICE Legal Sex Female 3:20 AM AIRPLANE MECHANIC APPRENTICE Gender Identity Female 09/20/2021 12:29 PM AIRPLANE MECHANIC APPRENTICE Sexual Orientation Straight 09/20/2021 12 :29 PM AIRPLANE MECHANIC APPRENTICE documented as of this encounter Plan of Treatment Not on file documented as of this encounter Visit Diagnoses Not on filedocumented in this encounter Additional Health Concerns Assessment Noted Time PHQ-9 Depression Total Score: 3 08/06/20 17 10:09 AM CDT documented as of this encounter Care Teams Overhead Garage Door Hanger Relationship Specialty Start Date End Date Tacos Galindo PA-C PCP - General Physician Title Clerk - Medical 10/19/17 05/29/19 Tacos Galindo PA-C [address] [place] Q[place] [address] PCP - Assigned PCP 10/21/17 12/10/18 Tacos Galindo PA-C [address] [place] Q[place] [address] Assigned PCP 10/21/17 09/10/21 documented as of this encounter
--- OUTSIDE RECORDS SUMMARY | 2024-09-10 05:00 | XMS_ITS | Encounter Summary ---
Author Organization [facility] Address [facility] [place] [address] Care Team Providers Care Explosive Ordnance Handler Name Role Phone Tacos Galindo PA-C Primary Care Provider Tacos Galindo PA-C Unavailable + [phone] Tacos Galindo PA-C Unavailable + [phone] Reason for Visit * Reason Onset Date Comments Medication Question 06/01/2018 Lisinopril a nd Amlodipine dosing Encounter Details Date Type Department Care Team (Late st Contact Info) Description 06/01/2018 [facility] [place] [address], [address] [place] [address] Tacos Galindo PA-C [address] [place] [address] Medication Question (Lisinopril and Amlodi... Social History Tobacco Use Types Packs/Day Years Used Date Smoking Tobacco: Never Smokeless Tobacco: Never Alcohol Use Standard Drinks/Week Comments No 0 (1 standard drink = 0.6 oz pur e alcohol) rarely Comments No Sex and Gender Information Value Date Recorded Sex Assigned at Female 09/20/2021 12:29 PM SCREW MACHINE SETTER Legal Sex Female 3:20 AM SCREW MACHINE SETTER Gender Identity Female 09/20/2021 12:29 PM SCREW MACHINE SETTER Sexual Orientation Straight 09/20/2021 12 :29 PM SCREW MACHINE SETTER documented as of this encounter Miscellaneous Notes [...] documented as of this encounter Care Teams Explosive Ordnance Handler Relationship Specialty Start Date End Date Tacos Galindo PA-C PCP - General Physician Hazardous Waste Remover - Medical 10/19/17 05/29/19 aTcos Galindo PA-C [address] [place] [address] PCP - Assigned PCP 10/21/17 12/10/18 Tacos Galindo PA-C 44819 [place] QIU [id number] Assigned PCP 10/21/17 09/10/21 documented as of this encounter
--- OUTSIDE RECORDS SUMMARY | 2024-09-10 05:00 | XMS_ITS | Encounter Summary ---
Author Organization [facility] Address [address] [place] [address]. [place] [address] Care Team Providers Care Application Defense Manager Name Role Phone Reshma Gordon APRN BEVELER Primary Care Provider + Tacos Galindo PA-C Primary Care Provider Tacos Galindo PA-C Unavailable + Tacos Galindo PA-C Unavailable + Reason for Visit * Reason Onset Date Comments Refill Request 09/25/2017 simvastatin (ZOC OR) 40 MG tablet Encounter Details Date Type Department Care Team (Late st Contact Info) Description 09/25/2017 Refill M [address] [phone] Reshma Gordon APRN [address] [address] Refill Request (simvastatin (ZOCOR) 40 MG tablet) Social History Tobacco Use Types Packs/Day Years Used Date Smoking Tobacco: Never Smokeless Tobacco: Never Alcohol Use Standard Drinks/Week Comments No 0 (1 standard drink = 0.6 oz pur e alcohol) rarely Comments No Sex and Gender Information Value Date Recorded Sex Assigned at Female 09/20/2021 12:29 PM POLYSOMNOGRAPHER Legal Sex Female 3:20 AM POLYSOMNOGRAPHER Gender Identity Female 09/20/2021 12:29 PM POLYSOMNOGRAPHER Sexual Orientation Straight 09/20/2021 12 :29 PM POLYSOMNOGRAPHER documented as of this encounter Miscellaneous Notes [...] Date CHOLHDLRATIO 2.9 05/19/2015 DESEAN Yan RN [facility] SOMNOGRAPHER * Telephone Encounter - Homer Osorio - 09/25/2017 1:29 PM CST simvastatin (ZOCOR) 40 MG tablet Last Written Prescription Date: 10/18/16 Last Fill Quantity: 90, # refills: 3 Last Office Visit: 08/13/17 Future Office visit: Routing refill request to provider for review/approval because: Does not meet protocol criteria SOMNOGRAPHER documented in this encounter Plan of Treatment Not on file documented as of this encounter Visit Diagnoses Diagnosis Hyperlipidemia LDL goal <130 Other and unspecified hyperlipidemia documented in this encounter Additional Health Concerns Assessment Noted Time PHQ-9 Depression Total Score: 3 08/06/20 17 10:09 AM CDT documented as of this encounter Care Teams Application Defense Manager Relationship Specialty Start Date End Date Reshma Gordon, MARINE FUEL DOCK ATTENDANT BEVELER [address] [place], [place] [address] PCP - General Nurse Practitioner - Family 08/18/13 10/18/17 Tacos Galindo PA-C [address] [place], [place] [phone] PCP - General Physician Non Destructive Tester - Medical 10/19/17 05/29/19 Tacos Galindo PA-C [address] [place] [address] PCP - Assigned PCP 10/21/17 12/10/18 Tacos Galindo PA-C [address] [place] Q[place] [address] Assigned PCP 10/21/17 09/10/21 documented as of this encounter
--- OUTSIDE RECORDS SUMMARY | 2024-09-10 05:00 | XMS_ITS | Encounter Summary ---
Author Organization [facility] Address [address] [place] [address]. [place] [address] Care Team Providers Care Application Support Intern Name Role Phone Reshma Gordon APRN AWNING HANGER Primary Care Provider + Tacos Galindo PA-C Primary Care Provider Tacos Galindo PA-C Unavailable +[phone] Tacos Galindo PA-C Unavailable +[phone] Reason for Visit * Reason Onset Date Comments Appointment 05/17/2015 Fasting labs Encounter Details Date Type Department Care Team (Late st Contact Info) Description 05/17/2015 My[facility] Medical Advice [address] [address] Reshma Gordon APRN [address] [address] Appointment (Fasting labs) Social History Tobacco Use Types Packs/Day Years Used Date Smoking Tobacco: Never Smokeless Tobacco: Never Alcohol Use Standard Drinks/Week Comments No 0 (1 standard drink = 0.6 oz pur e alcohol) rarely Comments No Sex and Gender Information Value Date Recorded Sex Assigned at Female 09/20/2021 12:29 PM CIRCUS TRAINER Legal Sex Female 3:20 AM CIRCUS TRAINER Gender Identity Female 09/20/2021 12:29 PM CIRCUS TRAINER Sexual Orientation Straight 09/20/2021 12 :29 PM CIRCUS TRAINER documented as of this encounter Miscellaneous Notes * Telephone Encounter - Magnolia Noyola, RN - 05/17/2015 4:01 PM CDT I messaged pt as below. Rick Triage Nurse documented in this encounter Plan of Treatment Not on file documented as of this encounter Visit Diagnoses Not on filedocumented in this encounter Care Teams Application Support Intern Relationship Specialty Start Date End Date Reshma Gordon APRN AWNING HANGER [address] [place] [address] PCP - General Nurse Practitioner - Family 08/18/13 10/18/17 Tacos Galindo PA-C [address] [place] [address] PCP - General Physician Entry Specialist - Medical 10/19/17 05/29/19 Tacos Galindo PA-C [address] [place] [address] PCP - Assigned PCP 10/21/17 12/10/18 Tacos Galindo PA-C [address] [address] [place], [place] [id number] Assigned PCP 10/21/17 09/10/21 documented as of this encounter
--- OUTSIDE RECORDS SUMMARY | 2024-09-10 05:00 | XMS_ITS | Encounter Summary ---
Author Organization [facility] Address [address] [place] [address]. [place] [address] Care Team Providers Care Exchange Trouble Shooter Name Role Phone Tona Williamson PA-C Primary Care Provi domingo Reshma Gordon APRN, CNP Primary Care Provider + Tacos Galindo PA-C Primary Care Provider Tacos Galindo PA-C Unavailable [phone] Tacos Galindo PA-C Unavailable +[phone] Reason for Visit * Reason Onset Date Comments Refill Request 06/02/2012 Encounter Details Date Type Department Care Team (Late st Contact Info) Description 06/02/2012 MyC Migdalia [address] [phone] Tona Williamson PA-C [place] [address] Refill Request Social History Tobacco Use Types Packs/Day Years Used Date Smoking Tobacco: Never Smokeless Tobacco: Never Alcohol Use Standard Drinks/Week Comments No 0 (1 standard drink = 0.6 oz pur e alcohol) rarely Comments No Sex and Gender Information Value Date Recorded Sex Assigned at Female 09/20/2021 12:29 PM PEOPLESOFT FSCM DEVELOPER Legal Sex Female 3:20 AM PEOPLESOFT FSCM DEVELOPER Gender Identity Female 09/20/2021 12:29 PM PEOPLESOFT FSCM DEVELOPER Sexual Orientation Straight 09/20/2021 12 :29 PM PEOPLESOFT FSCM DEVELOPER documented as of this encounter Miscellaneous Notes * Telephone Encounter - Asia Gray - 06/03/2012 10:25 AM [facility] Original authorizing provider: KELLY Oliveros would like a refill of the following medications: triamterene-hydrochlorothiazide (MAXZIDE-25) 37.5-25 MG per tablet [Tona Williamson PA-C] Preferred pharmacy: [facility] Comment: documented in this encounter Plan of Treatment Not on file documented as of this encounter Visit Diagnoses Diagnosis HTN (hypertension) Unspecified essential hypertension documented in this encounter Care Teams Exchange Trouble Shooter Relationship Specialty Start Date End Date Tona Williamson PA-C PCP - General Physician Jet Piercer Operator 10/25/10 08/17/13 Reshma Gordon, HOG COOLER TRAVEL OCCUPATIONAL THERAPIST [address] [place] [address] PCP - General Nurse Practitioner - Family 08/18/13 10/18/17 Tacos Galindo PA-C [address] [place] [address] PCP - General Physician Jet Piercer Operator - Medical 10/19/17 05/29/19 Tacos Galindo PA-C [address] [place] Q[place] [address] PCP - Assigned PCP 10/21/17 12/10/18 Tacos Galindo PA-C [address] [place] Q[place] [address] Assigned PCP 10/21/17 09/10/21 documented as of this encounter
--- OUTSIDE RECORDS SUMMARY | 2024-09-10 05:00 | XMS_ITS | Referral Summary ---
Author Organization [facility] Address [address] [place] [address]. [place] [address] Care Team Providers Care Timber Grader Name Role Phone Unavailable Primary Care Provider Unavailabl e Allergies Active Allergy Reactions Criticality Noted Date Comments Erythromycin Shortness Of Breath,Hives High 10/26/19 11 Nmagdhrn-Jrmspvjfo-Vcpymtkcm n Rash Low 03/06/2012 Medications Cholecalciferol (VITAMIN D) 2000 UNIT CAPS Take [...] mg) by mouth daily 30 tablet 1 4 Active mometasone (ELOCON) 0.1 % creamIndications: Other eczema Apply sparingly to affected area twice daily for 14 days. Do not apply to face. 15 g 1 7 Active amLODIPine (NORVASC) 5 MG tabletIndications :HTN, goal below 140/90 TAKE 1 TABLET BY MOUTH EVERY DAY 90 tablet 1 8 Active lisinopril (PRINIVIL/ZESTRIL ) 40 MG tabletIndications :HTN, goal below 140/90 Take 1 tablet (40 mg) by mouth daily 90 tablet 1 8 Active valACYclovir (VALTREX) 1000 mg tabletIndications :Herpes zoster without complication Take 1 tablet (1,000 mg) by mouth 3 times daily 21 tablet 8 Active triamterene-HCTZ (MAXZIDE-25) 37.5-25 MG tabletIndications :HTN, goal below 140/90 Take 0.5 tablets by mouth daily 90 tablet 8 Active atorvastatin (LIPITOR) 20 MG tabletIndications :Hyperlipidemia LDL goal <130 TAKE 1 TABLET (20 MG) BY MOUTH DAILY 90 tablet 1 8 Active Active Problems Problem Noted Date Diagnosed Date Family history of stroke 09/05/2018 Chronic pain of right ankle 10/18/2016 HTN, goal below 140/90 03/12/2012 Hyperlipidemia LDL goal <130 03/01/2011 Resolved Problems Problem Noted Date Diagnosed Date Resolved Date Advanced directives, counseling/discussion 03/12/2012 03/24/2024 Overview (01/03/2017): Advance Care Planning 01/03/2017: Receipt of ACP document: Received: Health Care Directive which was witnessed or notarized on 12/17/2014. Document previously scanned on 10/20/2016. Validation form completed and scanned. Code Status needs to be updated to reflect choices in most recent ACP document. Confirmed/documented designated decision maker(s). Added by Julita Bhagat [facility] [place] Advance Care Planning [...] School Help Needed Not on file 07/08 Comments No Sex and Gender Information Value Date Recorded Sex Assigned at Female 09/20/2021 12:29 PM TOP SPOTTER Legal Sex Female 3:20 AM TOP SPOTTER Gender Identity Female 09/20/2021 12:29 PM TOP SPOTTER Sexual Orientation Straight 09/20/2021 12 :29 PM TOP SPOTTER Last Filed Vital Signs Vital Sign Reading Time Taken Comments Blood Pressure 148/80 09/05/2018 10:34 AM TOP SPOTTER Pulse 66 09/05/2018 10:34 AM TOP SPOTTER Temperature 36.9 C (98.4 F) 09/05/2018 10:34 AM TOP SPOTTER Respiratory Rate 12 09/05/2018 10:34 AM TOP SPOTTER Oxygen Saturation 98% 10/19/2017 1:08 PM TOP SPOTTER Inhaled Oxygen Concentration - - Weight 83 kg (183 lb) 09/05/2018 10:34 AM TOP SPOTTER Height 156.2 cm (5' 1.5) 10/19/2017 1:08 PM TOP SPOTTER Body Mass Index 34.02 10/19/2017 1:08 PM TOP SPOTTER Plan of Treatment Not on file Insurance [facility] Advance Directives For more information, please contact: [phone] Documents on File Type Date Recorded Patient Equine Intern Expl anation Advance Directives and Living Will 10/20/2016 9:49 AM Health Care Directiv e 12/17/14 Healthcare Agents on File Name Relationship Healthcare Agent Relationship Communication Magdi Vincent Spouse Health Care Agent [email or web address] Josh Adolph Son First Alternate Health Care Agent
--- OUTSIDE RECORDS SUMMARY | 2024-09-10 05:00 | XMS_ITS | Encounter Summary ---
Author Organization [facility] Address [facility] [place] [address] Care Team Providers Care Needle Setter Name Role Phone Tacos Galindo PA-C Primary Care Provider Tacos Galindo PA-C Unavailable + [phone] Tacos Galindo PA-C Unavailable + [phone] Reason for Visit * Reason Onset Date Comments Shingles 06/13/2018 E-visit submitte d Encounter Details Date Type Department Care Team (Late st Contact Info) Description 06/13/2018 My[facility] Medical Advice [address], [address] [place] [address] Tacos Galindo PA-C [id number] [place] [address] [place] (E-visit submitted) Social History Tobacco Use Types Packs/Day Years Used Date Smoking Tobacco: Never Smokeless Tobacco: Never Alcohol Use Standard Drinks/Week Comments No 0 (1 standard drink = 0.6 oz pur e alcohol) rarely Comments No Sex and Gender Information Value Date Recorded Sex Assigned at Female 09/20/2021 12:29 PM PHOTOENGRAVING MACHINE OPERATOR/TENDER Legal Sex Female 3:20 AM PHOTOENGRAVING MACHINE OPERATOR/TENDER Gender Identity Female 09/20/2021 12:29 PM PHOTOENGRAVING MACHINE OPERATOR/TENDER Sexual Orientation Straight 09/20/2021 12 :29 PM PHOTOENGRAVING MACHINE OPERATOR/TENDER documented as of this encounter Miscellaneous Notes * Telephone Encounter - Sommer López RN - 06/14/2018 9:07 AM CDT She couldn't attach the picture in the e-visit so she sent this message so you could see it. Sommer López RN * Telephone Encounter - Tacos Galindo [...] documented as of this encounter Care Teams Needle Setter Relationship Specialty Start Date End Date Tacos Galindo PA-C PCP - General Physician Temperature Regulator Pyrometer - Medical 10/19/17 05/29/19 Tacos Galindo PA-C [address] [place] [address] PCP - Assigned PCP 10/21/17 12/10/18 Tacos Galindo PA-C [address] [place] [address] Assigned PCP 10/21/17 09/10/21 documented as of this encounter
--- OUTSIDE RECORDS SUMMARY | 2024-09-10 05:00 | XMS_ITS | Clinical Summary ---
Author Organization [facility] Address [address] [place] [address]. [place] [address] Care Team Providers Care Pickle Sorter Name Role Phone Unavailable Primary Care Provider Unavailabl e Allergies Active Allergy Reactions Criticality Noted Date Comments Erythromycin Shortness Of Breath,Hives High 10/26/19 11 Oburncfp-Wftagokxk-Uluwvtsjc n Rash Low 03/06/2012 Medications Cholecalciferol (VITAMIN [...] designated decision maker(s). Added by Julita Bhagat [facility] [place] Liaison [...] Sex Assigned at Female 09/20/2021 12:29 PM COMMUTATOR UNDERCUTTER Legal Sex Female 3:20 AM COMMUTATOR UNDERCUTTER Gender Identity Female 09/20/2021 12:29 PM COMMUTATOR UNDERCUTTER Sexual Orientation Straight 09/20/2021 12 :29 PM COMMUTATOR UNDERCUTTER Last Filed Vital Signs Vital Sign Reading Time Taken Comments Blood Pressure 148/80 09/05/2018 10:34 AM COMMUTATOR UNDERCUTTER Pulse 66 09/05/2018 10:34 AM COMMUTATOR UNDERCUTTER Temperature 36.9 C (98.4 F) 09/05/2018 10:34 AM COMMUTATOR UNDERCUTTER Respiratory Rate 12 09/05/2018 10:34 AM COMMUTATOR UNDERCUTTER Oxygen Saturation 98% 10/19/2017 1:08 PM COMMUTATOR UNDERCUTTER Inhaled Oxygen Concentration - - Weight 83 kg (183 lb) 09/05/2018 10:34 AM COMMUTATOR UNDERCUTTER Height 156.2 cm (5' 1.5) 10/19/2017 1:08 PM COMMUTATOR UNDERCUTTER Body Mass Index 34.02 10/19/2017 1:08 PM COMMUTATOR UNDERCUTTER Plan of Treatment Not on file Insurance [facility] Advance Directives For more information, please contact: [phone] Documents on File Type Date Recorded Patient Gun Examiner Expl anation Advance Directives and Living Will 10/20/2016 9:49 AM Health Care Directiv e 12/17/14 Healthcare Agents on File Name Relationship Healthcare Agent Relationship Communication Magdi Vincent Spouse Health Care Agent . [employer] Josh Vincent Son First Alternate Health Care Agent
--- OUTSIDE RECORDS SUMMARY | 2024-09-10 05:00 | XMS_ITS | Encounter Summary ---
Author Organization [facility] Address [facility] [place] [address] Care Team Providers Care Glass Production Machine Operator Name Role Phone Tacos Galindo PA-C Unavailable + [phone] Encounter Details Date Type Department Care Team (Late st Contact Info) Description 09/02/2019 [facility] [place] Medical [place] [address] [address] Yara Burleson, [facility] Social History Tobacco Use Types Packs/Day Years Used Date Smoking Tobacco: Never Smokeless Tobacco: Never Alcohol Use Standard Drinks/Week Comments No 0 (1 standard drink = 0.6 oz pur e alcohol) rarely PHQ-2 Answer Date Recorded PHQ-2 Score 0 09/05/2018 Comments No Sex and Gender Information Value Date Recorded Sex Assigned at Female 09/20/2021 12:29 PM CIRCUIT BOARD ASSEMBLER Legal Sex Female 3:20 AM CIRCUIT BOARD ASSEMBLER Gender Identity Female 09/20/2021 12:29 PM CIRCUIT BOARD ASSEMBLER Sexual Orientation Straight 09/20/2021 12 :29 PM CIRCUIT BOARD ASSEMBLER documented as of this encounter Plan of Treatment Not on file documented as of this encounter Visit Diagnoses Not on filedocumented in this encounter Additional Health Concerns Assessment Noted Time PHQ-9 Depression Total Score: 3 09/05/20 18 12:23 PM CIRCUIT BOARD ASSEMBLER documented as of this encounter Care Teams Glass Production Machine Operator Relationship Specialty Start Date End Date Tacos Galindo PA-C [address] [place] [address] Assigned PCP 1/14/18 12/4/21 documented as of this encounter
[2024-09-10 05:10] LABS: Basophils Absolute Auto 0.04 K/uL (0.00-0.30); Basophils Percent Auto 0.8 % (0.0-3.0); Eosinophils Absolute Auto 0.11 K/uL (0.00-0.50); Eosinophils Percent Auto 2.1 % (0.0-7.0); Hematocrit 43.9 % (33.0-51.0); Hemoglobin* 15.1 gm/dL (12.0-16.0); Lymphocytes Percent Auto 46.5 % (20-44); Mean Corpuscular HGB Conc 34 gm/dL (32-36); Mean Corpuscular Hemoglobin 30 pg (26-34); Mean Corpuscular Volume 86 fL (80-100); Monocytes Percent Auto 8.7 % (0.0-11.0); Neutrophils Percent Auto 41.9 % (42.0-72.0); Platelet Count* 256 K/uL (140-440); Red Blood Count 5.09 m/uL (4.00-5.20); White Blood Count* 5.31 K/uL (4.50-11.00)
[2024-09-10 05:13] LABS: Slide Review Reflex No
[2024-09-10 05:18] LABS: Troponin, Point-of-Care* 0.01 ng/ml (0.01-0.04)
[2024-09-10 05:22] LABS: Chloride* 105 mmol/L (96-114); Potassium* 3.4 mmol/L (3.6-5.1); Sodium* 137 mmol/L (135-149)
[2024-09-10 05:25] LABS: Creatinine* 0.5 mg/dL (0.5-1.5); Estimated Glomerular Filt Rate 101 ml/min
[2024-09-10 05:26] LABS: Anion Gap 7 mEq/L (7-15); Blood Urea Nitrogen* 15 mg/dL (7-30); Calcium* 9.3 mg/dL (8.4-10.6); Carbon Dioxide* 25 mmol/L (20-32); Glucose* 101 mg/dL (60-115)
[2024-09-10 05:38] LABS: C Reactive Protein* < 0.5 mg/dL (0.5-1.0); NT Pro B Type NatriureticPept* 41 pg/mL; Troponin I* < 0.01 ng/mL (0.01-0.04)
[2024-09-10 07:26] LABS: Troponin, Point-of-Care* 0.01 ng/ml (0.01-0.04)
== END 2024-09-10 07:34 | disposition home or self-care (01) ==
PROVIDERS: Emergency Provider Family Medicine; PCP Family Medicine
DX: R07.89 Other chest pain (principal)
CPT/HCPCS: 36415; 71046; 80048; 83880; 84484; 85025; 86140; 93005; 99284; 99285